=== PATIENT | female | born 1955 | race Caucasian/White ===

== ENCOUNTER 2023-08-26 10:11 | Outpatient (CLI) | payer MEDICARE, OTHER, SELFPAY | END 2023-08-26 10:12 | disposition home or self-care (01) | LOC: ANHAUDASC 10:14 | PROVIDERS: PCP Family Medicine; Visit Provider Otolaryngology | DX: H90.3 Sensorineural hearing loss, bilateral (principal) | CPT/HCPCS: 92557; 92567 ==

== ENCOUNTER 2024-07-22 08:01 | Outpatient (CLI) | payer MEDICARE, OTHER, SELFPAY ==
--- OUTSIDE RECORDS SUMMARY | 2024-07-22 08:05 | XMS_ITS ---
Author Organization [facility] Address [address] [place] [address] Care Team Providers Care Core Driller Helper Name Role Phone Dami Juárez MD Primary Care Provider [phone] Luz Elena Barnes RN Unavailable [phone] Hollie Cespedes MD Unavailable [phone] Transplant Episode Lung Recipient [facility] ([place], [place]) [facility] Organs Received: Right Lung, Left Lung Transplanted on 07/19/2020 Marked as Active Follow-up on 07/19/2020 Lung CoordinatorLuz Elena Barnes RN Fax: N/A Email: N/A [place] Organ Diagnosis Organ Primary Contributory Lung Pulmonary Fibrosis O ther, Specify Cause - Usual Interstitial Pneumonia (UIP) Rejection History Noted Survival Rejection Treatment Biopsy Resolved 08/02/2020 14 days Rejection of lung transplant (HCC) Donor Information Organ ABO Source Meets Risk Criteria HLA Match Mismatches Cross Match Right Lung Transplanted O No A: B: DR: Left Lung Transplanted O No A: B: DR: Right Lung Donor Serology Results Anti-CMV CMV IgG: Positive Anti-HBcAb HBC Total: Negative HBsAg HBsAg: Negative HBV DNA No results on file Anti-HCV HCV: Negative Anti-HIV I/II No results on file Anti-HTLV I/II HTLV: Not Done RPR/VDRL RPR: Negative HBsAb HBsAb: Not Done SARS CoV-2 No results on file Left Lung Donor Serology Results Anti-CMV CMV IgG: Positive Anti-HBcAb HBC Total: Negative HBsAg HBsAg: Negative HBV DNA No results on file Anti-HCV HCV: Negative Anti-HIV I/II No results on file Anti-HTLV I/II HTLV: Not Done RPR/VDRL RPR: Negative HBsAb HBsAb: Not Done SARS CoV-2 No results on file Care Team Name Role Phone Fax Email Luz Elena Barnes, RN Lung Coordinator [phone] N/A N/A [facility] Analyst [phone] N/A N/A Kane Mayorga MD PhD Surgeon [phone] N/A Luz Elena Barnes RN Post Coordinator [phone] N/A N/A Madhavi Cruz RD Dietitian N/A N/A N/A Gallo Farmer, [facility] Pharmacist N/A N/A N/A Hollie Cespedes MD Coal Shooter [phone] N/A Argentina Carney MD Referring Physician [phone] N/A ASHTYN RehmanW Supervisor [place] N/A N/A N/A Jessica Hernandez, KORINA Pre Coordinator N/A N/A N/A Juaquin Perez MD Surgeon [phone] N/A Events Post-Transplant Pre-Transplant Admitted: 07/18/2020 Referred: 04/10/2020 Transplanted: 07/19/2020 Evaluation began: Discharged: 08/01/2020 Committee: 05/31/2020 Center waitlisted:
--- OUTSIDE RECORDS SUMMARY | 2024-07-22 08:05 | XMS_ITS | Referral Summary ---
Author Organization [facility] Address [address] [place] [address] Care Team Providers Care Green Marketer Name Role Phone Dami Juárez MD Primary Care Provider Luz Elena Barnes RN Unavailable [phone] Hollie Cespedes MD Unavailable [phone] Encounters Date Type Department Care Team Description 07/20/2024 Orders Only [facility] Transplant Lung [address] [place] [address] [phone] [place] [address] Luz Elena Barnes, RN 07/05/2024 Orders Only [facility] Transplant Lung [address] [phone] [place] [address] Luz Elena Barnes, RN Encounter for aftercare following lung transplant (HCC) (Primary Dx); Long-term use of immunosuppressant medication; Encounter for therapeutic drug level monitoring; Aftercare following organ transplant 06/15/2024 Orders Only [facility] Transplant Lung [address] [phone] [place] [address] Luz Elena Barnes, RN 04/28/2024 9:31 AM COMMERCIAL REVIEW APPRAISER - 04/28/2024 11:59 PM [facility] Hospital Encounter [facility] ([facility]) [address] [place] [address] Encounter for aftercare following lung transplant (HCC) Discharge Disposition: Discharge to home or self care 04/28/2024 9:35 AM COMMERCIAL REVIEW APPRAISER Lab [facility] ([facility]) [address] [place] [address] Encounter for aftercare following lung transplant (HCC) 04/28/2024 11:00 AM COMMERCIAL REVIEW APPRAISER Office Visit [facility] Pulmonary [address] [facility] 8th [place] [address] Bo Xie MD Encounter for aftercare following lung transplant (HCC) (Primary Dx); Encounter for monitoring tacrolimus therapy; Stage 4 chronic kidney disease (HCC) 04/28/2024 9:56 AM COMMERCIAL REVIEW APPRAISER - 04/28/2024 11:59 PM COMMERCIAL REVIEW APPRAISER Hospital Encounter [facility] Pulmonary [address] [facility] [address] [place] [address] Encounter for aftercare following lung transplant (HCC) Discharge Disposition: Discharge to home or self care 04/25/2024 Orders Only [facility] Transplant Lung [address] [phone] [place] [address] Luz Elena Barnes RN from Last 3 Months Allergies No known active allergies Medications levothyroxine (SYNTHROID) 75 mcg tablet Take 75 mcg by mouth building cleaner before breakfast Active aspirin 81 mg enteric coated tablet Take 81 mg by mouth daily Active acetaminophen (TYLENOL) 325 mg tablet Take 1-2 tablets (325-650 mg total) by mouth every 6 (six) hours as needed for pain 1 Active calcium carbonate (OS-MARY ANNE) 1,250 MG (500 mg of elemental calcium) tablet Take 1 tablet (1,250 mg total) by mouth daily 1 Active cholecalcifero l (VITAMIN D-3) 2000 unit capsule Take 1 capsule (2,000 Units total) by mouth daily 1 Active fluticasone propionate (FLONASE) 50 mcg/actuation nasal spray Administer 1 spray into each nostril 2 (two) times a day as needed for rhinitis or allergies 1 Inhaler 1 Active loratadine (CLARITIN) 10 mg tablet Take 1 tablet (10 mg total) by mouth daily as needed for allergies 1 Active rosuvastatin (CRESTOR) 10 mg tablet TAKE 1 TABLET BY MOUTH DAILY 90 tablet [address] (PROTONIX) 40 mg EC tablet TAKE 1 TABLET BY MOUTH DAILY 90 tablet 3 3 Active denosumab (PROLIA) 60 mg/mL syringe Inject under the skin once Managed by PCP. Active tacrolimus 1 mg immediate-rele ase capsuleIndicat ions:immunosup pression Take 4 capsules (4 mg total) by mouth every morning AND 3 capsules (3 mg total) nightly. 210 capsule 11 5 Active acyclovir (ZOVIRAX) 200 mg capsule Take 1 capsule (200 mg total) by mouth 2 (two) times a day 60 capsule 11 5 Active sulfamethoxazo le-trimethopri m (BACTRIM DS) 800-160 mg per tablet Take 1 tablet (160 mg of trimethoprim total) by mouth 3 (three) times a week 13 tablet 11 5 Active predniSONE (DELTASONE) 5 mg tablet Take 1.5 tablets (7.5 mg) by mouth daily 45 tablet 11 5 025 Active mycophenolate mofetil (CELLCEPT) 500 mg tablet Take 1 tablet (500 mg total) by mouth 2 (two) times a day 60 tablet 11 5 Active mycophenolate mofetil (CELLCEPT) 500 mg tablet TAKE ONE TABLET BY MOUTH TWICE A DAY 60 tablet 11 4 025 Discontin ued(Reord er) predniSONE (DELTASONE) 5 mg tablet TAKE ONE AND ONE HALF TABLET BY MOUTH ONCE DAILY 45 tablet 4 025 Discontin ued(Reord er) Active Problems Problem Noted Date Diagnosed Date Rejection of lung transplant 08/02/2020 Anemia 07/31/2020 Assessment & Plan (08/01/2020 7:56 AM CDT): R/T post op transplant. Stable - No S/S of bleeding noted Chronic respiratory failure 07/31/2020 Assessment & Plan (07/31/2020 8:46 AM CDT): S/P Bilateral lung transplant - On RA Acute pain 07/23/2020 Assessment & Plan (08/01/2020 7:56 AM CDT): Consistent with post-op anterior clamshell incisions. Pain is improving - encouraged to use oral pain medication - Scheduled Tylenol - PRN oxy Bilateral lung transplantation 07/19/20. 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 Pulm managing antibiotics and immunosuppression - pulmonary rehab- walking 30 minutes on treadmill - Aggressive pulmonary rehab. Acapella and IS - regular diet/bowel regimen Assessment & Plan (07/21/2020 11:48 AM CDT): - Now s/p bilateral lung transplant 07/19 - Appreciate pulm transplant recommendations - [address] to -20 suction, CTM output - On Linezolid/Meropenem - PT ordered - Continue CLD - Continue dobutamine gtt for hypotension post-op Moderate persistent asthma without complication 02/25/2020 Constipation 01/09/2020 COVID-19 virus infection 01/09/2020 Hypothyroid 01/06/2020 S/P thoracotomy 12/06/2019 Encounter for aftercare following lung transplan t ([facility]) Immunizations Immunization Administration Dates Next Due Influenza, Quadrivalent, Split, Intramuscular Moderna SARS-CoV-2 Monovalent Vaccination (12+ Y RS) 05/08/2021,11/22/2020 Pfizer SARS-CoV-2 Monovalent Vaccination (12+ Yrs) PURPLE 01/26/2023 Pneumococcal Conjugate Pcv20 01/28/2024 Pneumococcal Polysaccharide PPV23 04/28/2024 RSV Vaccine, Pref, Recombina nt, Subunit, Adjuvanted, PF, IM (Arexvy) 01/26/2023 Social History Tobacco Use Types Packs/Day Years Used Date Smoking Tobacco: Never Smokeless Tobacco: Never AUDIT-C Answer Date Recorded Q1: How often do you have a drink containing alc ohol? Never 07/18/2021 Average Number of Drinks Not on file 022 Frequency of Binge Drinking Not on file 07/2021 PHQ-2 Answer Date Recorded PHQ-2 Total Score (If total score is 3 or more points, staff should administer the PHQ-9) 0 10/15/2020 Personal Safety Answer Date Recorded Have you ever been in or are you currently in a harmful physical or emotional relationship or is someone making you feel afraid or unsafe? Denies 10/09/2022 Comments No Sex and Gender Information Value Date Recorded Sex Assigned at Not on file Legal Sex Female 1:04 PM COMMERCIAL REVIEW APPRAISER Gender Identity Not on file Sexual Orientation Not on file Last Filed Vital Signs Vital Sign Reading Time Taken Comments Blood Pressure 153/83 04/28/2024 10:12 AM COMMERCIAL REVIEW APPRAISER Pulse 78 04/28/2024 10:12 AM COMMERCIAL REVIEW APPRAISER Temperature 36.3 C (97.3 F) 04/28/2024 10:12 AM COMMERCIAL REVIEW APPRAISER Respiratory Rate 18 04/28/2024 10:12 AM COMMERCIAL REVIEW APPRAISER Oxygen Saturation 100% 04/28/2024 10:12 AM COMMERCIAL REVIEW APPRAISER Inhaled Oxygen Concentration - - Weight 93.4 kg (206 lb) 04/28/2024 10:12 AM COMMERCIAL REVIEW APPRAISER Height 158.8 cm (5' 2.5 ) 04/28/2024 10:12 AM CS T Body Mass Index 37.08 04/28/2024 10:12 AM COMMERCIAL REVIEW APPRAISER Plan of Treatment Not on file Medical Devices Implanted Type Area Connie Scratcher Device Identifier Shelf Expiration Date Model / Serial / Lot [employer] [id number] Angio-Seal Evolution 8fr .038in Guidewire Bypass Tube Suture - [id number] - [id number] Implanted:Qty: 1 on 05/23/2020 by Reji Lao MD at [facility] [employer] 01/13/2021 [id number] / [id number] / [id number] [employer] [id number] Angio-Seal Evolution 6fr .035in Guidewire Bypass Tube Suture - [id number] - [id number] Implanted:Qty: 1 on 05/23/2020 by Reji Lao MD at [facility] revoPT Emily 02/12/2021 [id number] / [id number] / [id number] Procedures Procedure Name Priority Date/Time Associated Diagnosis Comments PULMONARY FUNCTION TEST (PFT) Routine 04/28/2024 10:04 AM COMMERCIAL REVIEW APPRAISER Encounter for aftercare following lung transplant (HCC) XR CHEST PA LATERAL 2 VIEWS Schedule Routine, Read Routine (OP Routine) 04/28/2024 9:42 AM COMMERCIAL REVIEW APPRAISER Encounter for aftercare following lung transplant (HCC) EGFR Routine 04/28/2024 9:28 AM COMMERCIAL REVIEW APPRAISER Encounter for aftercare following lung transplant (HCC) DIFFERENTIAL AUTO Routine 04/28/2024 9:2 8 AM COMMERCIAL REVIEW APPRAISER Encounter for aftercare following lung transplant (HCC) CBC WITH AUTO DIFFERENTIAL Routine 04/28/2024 9:28 AM COMMERCIAL REVIEW APPRAISER Encounter for aftercare following lung transplant (HCC) COMPREHENSIVE METABOLIC PANEL Routine 04/28/2024 9:28 AM COMMERCIAL REVIEW APPRAISER Encounter for aftercare following lung transplant (HCC) TACROLIMUS LEVEL, TROUGH Routine 04/28/2024 9:28 AM COMMERCIAL REVIEW APPRAISER Encounter for aftercare following lung transplant (HCC) HEPATITIS C RNA, QUANTITATIVE, PCR Routine 07/22/2021 from Last 3 Months or Most Recently Relevant to Health Maintenance Results * Pulmonary Function Test - (04/28/2024 10:04 AM COMMERCIAL REVIEW APPRAISER) FVC PRE 2.[address] [facility] FVC %PRE PRED 82 % [facility] FEV1 PRE 1.83 L [facility] FEV1 %PRE PRED 88 % [facility] FEV1/FVC PRE 84.4 % [facility] Anatomical Region Laterality Modality PFT 04/28/2024 9:59 AM COMMERCIAL REVIEW APPRAISER Narrative 04/28/2024 11:04 AM COMMERCIAL REVIEW APPRAISER PFT performed at:->[facility] Adult PFT Lab- [id number] Procedure:->Spirometry Procedure:->Pulse Ox Pulmonary Function Test Interpretation SPIROMETRY: The FEV1 and FVC are normal. The inspiratory loop is normal. PULSE OXIMETRY: Oxygen saturation as measured by pulse oximetry is normal. Impression: There is no significant ventilatory defect. Compared with most recent study, there has been no significant interval change. The attending pulmonary physician certifies a physician presence in the [facility] Suite during the administration of aerosolized bronchodilator. The attending pulmonary physician certifies that he/she has reviewed and interpreted the graphic and numerical data of this pulmonary function study and agrees with the written final report. The lower limit of normal for PaO2 and %HbO2 is age dependent. However, the [facility] Pulmonary Function Laboratory defines hypoxemia as a PaO2 <56 mm Hg or a %HbO2 <89%. Starting on March of 2024 the [facility] Pulmonary Function Laboratory utilizes race neutral GLI Global normative equations. us Abdullahi Baird MD PhD PFT ORDERABLES Final Result * XR Chest Pa Lateral 2 Views (04/28/2024 9:42 AM COMMERCIAL REVIEW APPRAISER) Anatomical Region Laterality Modality Body, Chest N/A Computed Radiogr aphy 04/28/2024 10:3 2 AM COMMERCIAL REVIEW APPRAISER Impressions 04/28/2024 10:32 AM COMMERCIAL REVIEW APPRAISER The current study is compared with the prior radiograph dated 01/28/2024 Transverse sternotomy wires and changes of bilateral lung transplantation are again noted. No new consolidation or pulmonary edema. No pleural effusion or pneumothorax. Minimal blunting of the costophrenic angles is unchanged and likely represents mild scarring. Electronically signed by: Von Garcia M.D. Narrative 04/28/2024 10:32 AM COMMERCIAL REVIEW APPRAISER EXAMINATION: 2 view chest radiograph Procedure Note Von Garcia MD - 04/28/2024 EXAMINATION: 2 view chest radiograph IMPRESSION: The current study is compared with the prior radiograph dated 01/28/2024 Transverse sternotomy wires and changes of bilateral lung transplantation are again noted. No new consolidation or pulmonary edema. No pleural effusion or pneumothorax. Minimal blunting of the costophrenic angles is unchanged and likely represents mild scarring. Electronically signed by: Von Garcia M.D. Abdullahi Biard MD PhD IMG XR PROCEDURES Seble l Result * (ABNORMAL) eGFR (04/28/2024 9:28 AM COMMERCIAL REVIEW APPRAISER) eGFR 38(L) >=60 mL/min/1. 73 m2 Comment: Interpretive Data Reference Interval Normal >/= 90 mL/min/1.73m2 Mildly decreased* 60 - 89 mL/min/1.73m2 Mildly to moderately decreased 45 - 59 mL/min/1.73m2 Moderately to severely decreased 30 - 44 mL/min/1.73m2 Severely decreased 15 - 29 mL/min/1.73m2 Kidney Failure < 15 mL/min/1.73m2 *Relative to young adult level Estimated glomerular filtration rate is determined by the 2020 CKD-EPI equation recommended by the National Kidney Foundation (A Unifying Approach to GFR Estimation: Recommendations of the NKF-ASK Task Force on Reassessing the Inclusion of Race in Diagnosing Kidney Disease, JASN 2020). The CKD-EPI equation should not be used for patients with unstable renal function and has not been validated in children and those over 70. Current interpretive data was last reviewed 2021. Blood 04/28/2024 9:28 AM COMMERCIAL REVIEW APPRAISER 04/28/2024 10:04 AM COMMERCIAL REVIEW APPRAISER Abdullahi Baird MD PhD LAB BLOOD ORDERABLES F inal Result [facility] [place] [address] * Differential, auto (04/28/2024 9:28 AM COMMERCIAL REVIEW APPRAISER) Neutrophil abs 2.6 1.5 - 6.5 K/cumm Imm gran abs 0.0 0.0 - 0.1 K/cumm [facility] Lymphocyte abs 1.7 0.8 - 3.3 K/cumm [facility] Monocyte abs 0.6 0.2 - 0.8 K/cumm [facility] Eosinophil abs 0.1 0.0 - 0.5 K/cumm [facility] Basophil abs 0.0 0.0 - 0.1 K/cumm [facility] Neutrophil pct 51.6 % [facility] Comment: Interpretive Data Percent cell count reference ranges are not reported, since discordance with absolute values may lead to misinterpretation of CBC data. Current Interpretive Data was last revised on 2017. Imm gran pct 0.6 % [facility] Comment: Interpretive Data Percent cell count reference ranges are not reported, since discordance with absolute values may lead to misinterpretation of CBC data. Current Interpretive Data was last revised on 2017. Lymphocyte pct 33.9 % [facility] Comment: Interpretive Data Percent cell count reference ranges are not reported, since discordance with absolute values may lead to misinterpretation of CBC data. Current Interpretive Data was last revised on 2017. Monocyte pct 12.1 % [facility] Comment: Interpretive Data Percent cell count reference ranges are not reported, since discordance with absolute values may lead to misinterpretation of CBC data. Current Interpretive Data was last revised on 2017. Eosinophil pct 1.4 % [facility] Comment: Interpretive Data Percent cell count reference ranges are not reported, since discordance with absolute values may lead to misinterpretation of CBC data. Current Interpretive Data was last revised on 2017. Basophil pct 0.4 % [facility] Comment: Interpretive Data Percent cell count reference ranges are not reported, since discordance with absolute values may lead to misinterpretation of CBC data. Current Interpretive Data was last revised on 2017. Blood 04/28/2024 9:28 AM COMMERCIAL REVIEW APPRAISER 04/28/2024 9:59 AM COMMERCIAL REVIEW APPRAISER us Abdullahi Baird MD PhD LAB BLOOD ORDERABLES F inal Result [facility] Department [place] [address] * Tacrolimus level trough (04/28/2024 9:28 AM COMMERCIAL REVIEW APPRAISER) Pathologist [facility] Tacrolimus trough 5.3 ng/mL Comment: Interpretive Data Testing performed by liquid chromatography-tandem mass spectrometry. Therapeutic concentrations vary depending on type of transplanted organ and time elapsed since transplant. Typical trough concentrations range from 5-15 ng/mL. This test was developed and its performance characteristics determined by the [facility] consistent with CLIA requirements. This test has not been cleared or approved by the [place] Food and Drug administration. Current interpretive data last reviewed 2019. Blood 04/28/2024 9:28 AM COMMERCIAL REVIEW APPRAISER 04/28/2024 9:59 AM COMMERCIAL REVIEW APPRAISER us Abdullahi Baird MD PhD LAB BLOOD ORDERABLES F inal Result [facility] [place] [address] * (ABNORMAL) CBC with auto differential (04/28/2024 9:28 AM COMMERCIAL REVIEW APPRAISER) [facility] WBC 5.0 3.8 - 9.9 K/cumm Hgb 11.9 11.9 - 15.5 g/dL [facility] Hct 36.3 35.6 - 45.5 % [facility] Plt 160 150 - 400 K/cumm [facility] MPV 11.4 9.1 - 12.3 fL [facility] RBC 3.68(L) 3.90 - 5.20 M/cumm [facility] MCV 98.6(H) 81.3 - 96.4 fL [facility] MCH 32.3 27.1 - 33.3 pg [facility] MCHC 32.8 32.3 - 35.7 g/dL [facility] RDW CV 13.1 11.1 - 14.9 % [facility] RDW SD 46.6 35.7 - 48.1 fL [facility] NRBC abs 0.00 0.00 - 0.01 K/cumm [facility] Blood 04/28/2024 9:28 AM COMMERCIAL REVIEW APPRAISER 04/28/2024 9:59 AM COMMERCIAL REVIEW APPRAISER us Abdullahi Baird MD PhD LAB BLOOD ORDERABLES F inal Result [facility] [place] [address] * (ABNORMAL) Comprehensive metabolic panel (04/28/2024 9:28 AM COMMERCIAL REVIEW APPRAISER) Sodium 140 135 - 145 mmol/L Potassium, pl 4.0 3.3 - 4.9 mmol/L [facility] Chloride 105 97 - 110 mmol/L [facility] CO2 25 22 - 32 mmol/L [facility] Anion gap 10 2 - 15 mmol/L [facility] BUN 29(H) 6 - 25 mg/dL [facility] Creatinine 1.50(H) 0.60 - 1.10 mg/dL [facility] Glucose 88 70 - 199 mg/dL [facility] Comment: Interpretive Data Fasting glucose >/= 126 mg/dl is diagnostic for diabetes. Fasting is defined as no caloric intake for at least 8 hours. Fasting glucose between 100 mg/dl to 125 mg/dl is diagnostic of prediabetes. In a patient with classic symptoms of hyperglycemia or hyperglycemic crisis, a random glucose >/= 200 mg/dl is diagnostic for diabetes. In the absence of unequivocal hyperglycemia, results should be confirmed by repeat testing. The classification and Diagnosis of Diabetes Diabetes Care 2021; 46: S19-S40. Current interpretive data was last revised 2022. Calcium 9.4 8.5 - 10.3 mg/dL [facility] Bilirubin, total 0.3 0.1 - 1.2 mg/dL [facility] Protein, pl 6.9 6.5 - 8.5 g/dL [facility] Albumin 4.2 3.5 - 5.0 g/dL [facility] Alk phos 58 40 - 130 Units/L [facility] ALT 13 7 - 45 Units/L [facility] AST 31 10 - 45 Units/L [facility] Blood 04/28/2024 9:28 AM COMMERCIAL REVIEW APPRAISER 04/28/2024 9:59 AM COMMERCIAL REVIEW APPRAISER us Abdullahi Baird MD PhD LAB BLOOD ORDERABLES F inal Result [facility] [place] [address] * Hepatitis C (HCV) RNA PCR, quantitative (07/22/2021) SCRIBED HCV RNA <15 15 - 100,000,000 IUnit/mL EXTERNAL LAB HCV RNA log IU/mL <1.18 1.18 - 8.00 EXTERNAL LAB Blood specimen (specimen) 07/22/2021 us Historical Provider LAB MICROBIOLOGY - GENERA L ORDERABLES Edited Result - Final EXTERNAL LAB from Last 3 Months or Most Recently Relevant to Health Maintenance Insurance MEDICARE MEDICARE LIVE [address] [facility] MEDICARE [facility] MEDICARE [facility] TRANSPLANT [facility] Advance Directives For more information, please contact: [phone] * Full Code (Latest Code Status on File) Date Activated Date Inactivated Comments 08/27/2020 7:37 AM 08/27/2020 1:55 PM * Full Code Date Activated Date Inactivated Comments 07/20/2020 11:11 AM 08/01/2020 7:54 PM * Full Code Date Activated Date Inactivated Comments 07/18/2020 6:33 PM 07/20/2020 11:11 AM * Full Code Date Activated Date Inactivated Comments 05/23/2020 3:35 PM 05/23/2020 9:41 PM Care Teams Green Marketer Relationship Specialty Start Date End Date Dami Juárez MD PCP - General 04/27/20 Luz Elena Barnes, RN [address] [facility] [address] [place] [address] Coconut Cooker 08/02/20 Hollie Cespedes MD [address] [place] [address] Shellfish Processing Laborer Transplant 06/03/23
--- OUTSIDE RECORDS SUMMARY | 2024-07-22 08:05 | XMS_ITS | Encounter Summary ---
Author Organization [facility] Address [facility] [place] [address] Care Team Providers Care Animal Control Supervisor Name Role Phone Dami Juárez MD Primary Care Provider [phone] Encounter Details Date Type Department Care Team (Late st Contact Info) Description 05/12/2023 [place] [address] Fahad Ruiz MD [address] [place] [address] Visit Follow Up Social History Tobacco Use Types Packs/Day Years Used Date Smoking Tobacco: Never Smokeless Tobacco: Never Alcohol Use Standard Drinks/Week Comments Not Currently 0 (1 standard drink = 0.6 oz pur e alcohol) PHQ-2 Answer Date Recorded PHQ-2 Score - If the patient scores above 3, please move on to questions 3-9 0 03/28/2020 Comments No Sex and Gender Information Value Date Recorded Sex Assigned at Female 04/12/2024 9:35 AM GYRO COMPASS TESTER Legal Sex Female 6:46 PM CDT Gender Identity Not on file Sexual Orientation Not on file documented as of this encounter Functional Status * RETIRED Are you deaf or do you have serious difficulty hearing Answer Date of Assessment Author Status No 01/06/2020 4:09 PM CDT Activ e * RETIRED Are you blind or do you have serious difficulty seeing, even when wearing glasses? Answer Date of Assessment Author Status No 01/06/2020 4:09 PM CDT Activ e * Do you have serious difficulty walking or climbing stairs? Answer Date of Assessment Author Status No 01/06/2020 4:09 PM Heydi Miller RN Active * Do you have difficulty dressing or bathing? Answer Date of Assessment Author Status No 01/06/2020 4:09 PM Heydi Miller RN Active * Because of a physical, mental, or emotional condition, do you have difficulty doing errands alone such as visiting a doctor's office or shopping? Answer Date of Assessment Author Status No 01/06/2020 4:09 PM Heydi Miller RN Active documented as of this encounter Mental Status * Because of a physical, mental, or emotional condition, do you have serious difficulty concentrating, remembering, or making decisions? Answer Entry Date Author Status No 01/06/2020 4:09 PM Heydi Miller RN Active documented in this encounter Plan of Treatment Not on file documented as of this encounter Visit Diagnoses Not on filedocumented in this encounter Care Teams Animal Control Supervisor Relationship Specialty Start Date End Date Dami Juárez MD [address] [place] [phone] PCP - General FAMILY PRACTICE 03/27/20 documented as of this encounter
--- OUTSIDE RECORDS SUMMARY | 2024-07-22 08:05 | XMS_ITS | Encounter Summary ---
Author Organization [facility] Address [facility] [place] [address] Care Team Providers Care Vest Presser Name Role Phone Dami Juárez MD Primary Care Provider [phone] Encounter Details Date Type Department Care Team (Late st Contact Info) Description 04/02/2020 MyChart Message Enc [facility] [address] [place] [address] Argentina Carney MD [address] [place] [address] RE: Medication Questions Social History Tobacco Use Types Packs/Day Years [...] Sex Assigned at Female 04/12/2024 9:35 AM PANEL MONITOR Legal Sex Female 6:46 PM CDT Gender Identity Not on file Sexual Orientation Not on file COVID-19 Exposure Response Date Recorded In the last month, have you been in contact with someone who was confirmed or suspected to have Coronavirus / COVID-19? No / Unsure 03/28/2020 8:33 AM PANEL MONITOR documented as of this encounter Functional Status [...] Author Status No 01/06/2020 4:09 PM CDT Heydi Pal RN Active * Do you have difficulty dressing or bathing? Answer Date of Assessment Author Status No 01/06/2020 4:09 PM CDT Heydi Pal RN Active * Because of a physical, mental, or emotional condition, do you have difficulty doing errands alone such as visiting a doctor's office or shopping? Answer Date of Assessment Author Status No 01/06/2020 4:09 PM CDT Heydi Pal RN Active documented as of this encounter Mental Status * Because of a physical, mental, or emotional condition, do you have serious difficulty concentrating, remembering, or making decisions? Answer Entry Date Author Status No 01/06/2020 4:09 PM CDT Heydi Pal RN Active documented in this encounter Progress Notes * Janet Burrows MA - 04/02/2020 9:19 AM CST See below L MONITOR documented in this encounter Plan of Treatment Not on file documented as of this encounter Visit Diagnoses Not on filedocumented in this encounter Additional Health Concerns Infection Onset Date Last Indicated Resolved Time COVID-19 Rule Out 04/26/2020 04/26/2020 04/28/2020 9:12 AM PANEL MONITOR COVID-19 Rule Out 12/03/2020 12/03/2020 12/04/2020 1:54 PM CDT COVID-19 Rule Out 11/28/2022 11/28/2022 11/28/2022 2:24 PM CDT documented as of this encounter Care Teams Vest Presser Relationship Specialty Start Date End Date Dami Juárez MD [address] [place] [phone] PCP - General FAMILY PRACTICE 03/27/20 documented as of this encounter
--- OUTSIDE RECORDS SUMMARY | 2024-07-22 08:05 | XMS_ITS | Encounter Summary ---
Author Organization [facility] Address [facility] [place] [address] Care Team Providers Care Flat Folding Machine Operator Name Role Phone Dami Juárez MD Primary Care Provider [phone] Encounter Details Date Type Department Care Team (Late st Contact Info) Description 10/10/2022 [place] [address] Fahad Ruiz MD [address] [place] [address] Visit Follow Up Social History Tobacco Use [...] Sex Assigned at Female 04/12/2024 9:35 AM STOCK CONTROL CLERK Legal Sex Female 6:46 PM CDT Gender [...] Pal RN Active documented in this encounter Plan of Treatment Not on file documented as of this encounter Visit Diagnoses Not on filedocumented in this encounter Additional Health Concerns Infection Onset Date Last Indicated Resolved Time COVID-19 Rule Out 11/28/2022 11/28/2022 11/28/2022 2:24 PM CDT documented as of this encounter Care Teams Flat Folding Machine Operator Relationship Specialty Start Date End Date Dami Juárez MD [address] [place] [phone] PCP - General FAMILY PRACTICE 03/27/20 documented as of this encounter
--- OUTSIDE RECORDS SUMMARY | 2024-07-22 08:05 | XMS_ITS | Encounter Summary ---
Author Organization [facility] Address [facility] [place] [address] Care Team Providers Care Electrician Elevator Maintenance Name Role Phone Dami Juárez MD Primary Care Provider [phone] Encounter Details Date Type Department Care Team (Late st Contact Info) Description 05/10/2020 Paystikhart Message Enc [facility] [address] [place] [address] Argentina Carney MD [address] [place] [address] RE: FW: Other Social History Tobacco Use Types Packs/Day Years [...] Sex Assigned at Female 04/12/2024 9:35 AM COTTON PULLER Legal Sex Female 6:46 PM CDT Gender Identity Not on file Sexual Orientation Not on file COVID-19 Exposure Response Date Recorded In the last month, have you been in contact with someone who was confirmed or suspected to have Coronavirus / COVID-19? No / Unsure 05/02/2020 11:23 AM COTTON PULLER documented as of this encounter Functional Status [...] documented in this encounter Progress Notes * Argentina Carney MD - 05/29/2020 8:55 AM CDT See other task. This has been done. * Janet Burrows MA - 05/11/2020 3:37 PM CST FMLA forms in task folder ON PULLER documented in this encounter Plan of Treatment Not on file documented as of this encounter Visit Diagnoses Not on filedocumented in this encounter Additional Health Concerns Infection Onset Date Last Indicated Resolved Time COVID-19 Rule Out 12/03/2020 12/03/2020 12/04/2020 1:54 PM CDT COVID-19 Rule Out 11/28/2022 11/28/2022 11/28/2022 2:24 PM CDT documented as of this encounter Care Teams Electrician Elevator Maintenance Relationship Specialty Start Date End Date Dami Juárez MD [address] [place] [phone] PCP - General FAMILY PRACTICE 03/27/20 documented as of this encounter
--- OUTSIDE RECORDS SUMMARY | 2024-07-22 08:05 | XMS_ITS | Encounter Summary ---
Author Organization [facility] Address [facility] [place] [address] Care Team Providers Care Life Skills Trainer Name Role Phone Dami Juárez MD Primary Care Provider [phone] Encounter Details Date Type Department Care Team (Late st Contact Info) Description 04/03/2020 MyChart Message Enc [facility] [address] [address] Argentina Carney MD [address] [place] [address] RE: Medication Questions Social History [...] Sex Assigned at Female 04/12/2024 9:35 AM CLINICAL GENETICS LABORATORY CHIEF Legal Sex Female 6:46 PM CDT Gender Identity Not on file Sexual Orientation Not on file COVID-19 Exposure Response Date Recorded In the last month, have you been in contact with someone who was confirmed or suspected to have Coronavirus / COVID-19? No / Unsure 04/06/2020 7:18 PM CLINICAL GENETICS LABORATORY CHIEF documented as of this encounter Functional Status [...] Progress Notes * Janet Burrows MA - 04/03/2020 10:58 AM CST Please advise ICAL GENETICS LABORATORY CHIEF documented in this encounter Plan of Treatment Not on file documented as of this encounter Visit Diagnoses Not on filedocumented in this encounter Additional Health Concerns Infection Onset Date Last Indicated Resolved Time COVID-19 Rule Out 04/26/2020 04/26/2020 04/28/2020 9:12 AM CLINICAL GENETICS LABORATORY CHIEF COVID-19 Rule Out 12/03/2020 12/03/2020 12/04/2020 1:54 PM CDT COVID-19 Rule Out 11/28/2022 11/28/2022 11/28/2022 2:24 PM CDT documented as of this encounter Care Teams Life Skills Trainer Relationship Specialty Start Date End Date Dami Juárez MD [address] [place] [phone] PCP - General FAMILY PRACTICE 03/27/20 documented as of this encounter
--- OUTSIDE RECORDS SUMMARY | 2024-07-22 08:05 | XMS_ITS | Encounter Summary ---
Author Organization [facility] Address [address] [place] [address] Care Team Providers Care Speech Coach Name Role Phone Antonio Carlos MD Primary Care Provider [phone] Dami Juárez MD Primary Care Provider [phone] Encounter Details Date Type Department Care Team (Late st Contact Info) Description 03/05/2020 MyChart Message Enc [facility] [address] [place] [address] Argentina Carney MD [address] [place] [address] Question Social History Tobacco Use Types Packs/Day Years Used Date Smoking Tobacco: Never Smokeless Tobacco: Never Alcohol Use Standard Drinks/Week Comments Not Currently 0 (1 standard drink = 0.6 oz pur e alcohol) Comments No Sex and Gender Information Value Date Recorded Sex Assigned at Female 04/12/2024 9:35 AM WELFARE ELIGIBILITY INTERVIEWER Legal Sex Female 6:46 PM CDT Gender Identity Not on file Sexual Orientation Not on file COVID-19 Exposure Response Date Recorded In the last month, have you been in contact with someone who was confirmed or suspected to have Coronavirus / COVID-19? No / Unsure 02/22/2020 2:07 PM WELFARE ELIGIBILITY INTERVIEWER documented as of this encounter Functional Status [...] Author Status No 01/06/2020 4:09 PM CDT Keith Pal RN Active * Do you have [...] Date Author Status No 01/06/2020 4:09 PM DEONDRET Heydi Pal RN Active documented in this encounter Plan of Treatment Not on file documented as of this encounter Visit Diagnoses Not on filedocumented in this encounter Additional Health Concerns Infection Onset Date Last Indicated Resolved Time COVID-19 Confirmed 01/06/2020 01/06/2020 0 12:35 AM WELFARE ELIGIBILITY INTERVIEWER COVID-19 Rule Out 04/26/2020 04/26/2020 04/28/2020 9:12 AM WELFARE ELIGIBILITY INTERVIEWER COVID-19 Rule Out 12/03/2020 12/03/2020 12/04/2020 1:54 PM CDT COVID-19 Rule Out 11/28/2022 11/28/2022 11/28/2022 2:24 PM CDT documented as of this encounter Care Teams Speech Coach Relationship Specialty Start Date End Date Antonio Carlos MD [address] [place] [phone] PCP - General FAMILY PRACTICE 05/06/19 03/26/20 Dami Juárez MD [address] [place] [phone] PCP - General FAMILY PRACTICE 03/27/20 documented as of this encounter
--- OUTSIDE RECORDS SUMMARY | 2024-07-22 08:05 | XMS_ITS | Clinical Summary ---
Author Organization [facility] Address [address] [place] [address] Care Team Providers Care Dry Boss Name Role Phone Dami Juárez MD Primary Care Provider Luz Elena Barnes RN Unavailable [phone] Hollie Cespedes MD Unavailable [phone] Allergies No known active allergies Medications levothyroxine (SYNTHROID) 75 mcg tablet Take 75 mcg by mouth tree trimmer helper before breakfast Active aspirin 81 mg enteric [...] TABLET BY MOUTH ONCE DAILY 45 tablet 11 4 025 Discontin ued(Reord er) Active Problems [...] (04/23/2020): Added automatically from request for surgery [id number] Assessment & Plan (08/01/2020 7:56 AM CDT): [...] Encounter for aftercare following lung transplan t ([facility]) Encounters Date Type Department Care Team Description 07/20/2024 Orders Only [facility] Lung [address] [facility] [address] [id number] [place] [address] Luz Elena Barnes, RN 07/05/2024 Orders Only [facility] Transplant Lung [address] [facility] [address] [id number] [place] [address] Luz Elena Barnes, RN Encounter for aftercare following lung transplant (HCC) (Primary Dx); Long-term use of immunosuppressant medication; Encounter for therapeutic drug level monitoring; Aftercare following organ transplant 06/15/2024 Orders Only [facility] Transplant Lung [address] [facility] [address] [phone] [place] [address] Luz Elena Barnes RN 04/28/2024 11:00 AM WINDOWS MIGRATION TECHNICIAN Office Visit [facility] [address] [facility] 8th [place] [address] [place] [address] Bo Xie MD Encounter for aftercare following lung transplant (HCC) (Primary Dx); Encounter for monitoring tacrolimus therapy; Stage 4 chronic kidney disease (HCC) 04/28/2024 9:56 AM WINDOWS MIGRATION TECHNICIAN - 04/28/2024 11:59 PM WINDOWS MIGRATION TECHNICIAN Hospital Encounter [facility] [address] [facility] [address] [place] [address] Encounter for aftercare following lung transplant (HCC) Discharge Disposition: Discharge to home or self care 04/28/2024 9:35 AM WINDOWS MIGRATION TECHNICIAN Lab [facility] [address] [place] [phone] Encounter for aftercare following lung transplant (HCC) 04/28/2024 9:31 AM WINDOWS MIGRATION TECHNICIAN - 04/28/2024 11:59 PM WINDOWS MIGRATION TECHNICIAN Hospital Encounter [facility] [place] [facility] ([facility]) [address] [place] [address] Encounter for aftercare following lung transplant (HCC) Discharge Disposition: Discharge to home or self care 04/25/2024 Orders Only [facility] Transplant Lung [address] [facility] [address] [phone] [place] [address] Luz Elena Barnes, RN from Last 3 Months Immunizations Immunization Administration Dates Next Due Influenza, Quadrivalent, Split, Intramuscular Moderna SARS-CoV-2 Monovalent Vaccination (12+ Y RS) 05/08/2021,11/22/2020 Pfizer SARS-CoV-2 Monovalent Vaccination (12+ Yrs) PURPLE 01/26/2023 Pneumococcal Conjugate Pcv20 01/28/2024 Pneumococcal Polysaccharide PPV23 04/28/2024 RSV Vaccine, Pref, Recombina nt, Subunit, Adjuvanted, PF, IM (Arexvy) 01/26/2023 Surgical History Surgery Date Site/Laterality Comments LUNG BIOPSY IR PICC LINE PLACEMENT > 5 YEARS 08/27/2020 N/A LUNG TRANSPLANT, DOUBLE Medical History Medical History Date Comments Thyroid disease Pulmonary fibrosis (HCC) PONV (postoperative nausea and vomiting) Hypothyroidism Motion sickness GERD (gastroesophageal reflux disease) Family History Medical History Relation Name Comments Lung cancer Father Stroke Mother Relation Name Status Comments Father Mother Social History Tobacco Use Types Packs/Day Years [...] on file Legal Sex Female 1:04 PM WINDOWS MIGRATION TECHNICIAN Gender Identity Not on file Sexual Orientation Not on file Obstetrics History Last Filed Vital Signs Vital Sign Reading Time Taken Comments Blood Pressure 153/83 04/28/2024 10:12 AM WINDOWS MIGRATION TECHNICIAN Pulse 78 04/28/2024 10:12 AM WINDOWS MIGRATION TECHNICIAN Temperature 36.3 C (97.3 F) 04/28/2024 10:12 AM WINDOWS MIGRATION TECHNICIAN Respiratory Rate 18 04/28/2024 10:12 AM WINDOWS MIGRATION TECHNICIAN Oxygen Saturation 100% 04/28/2024 10:12 AM WINDOWS MIGRATION TECHNICIAN Inhaled Oxygen Concentration - - Weight 93.4 kg (206 lb) 04/28/2024 10:12 AM WINDOWS MIGRATION TECHNICIAN Height 158.8 cm (5' 2.5 ) 04/28/2024 10:12 AM CS T Body Mass Index 37.08 04/28/2024 10:12 AM WINDOWS MIGRATION TECHNICIAN Plan of Treatment Health Maintenance Due Date Last Done Comments Colon Cancer Screening-Colonoscopy 1955 DTaP/Tdap/Td Vaccine (1 - Tdap) 11/30/1966 Hepatitis B Screening 11/30/1973 Zoster Vaccine (1 of 2) 11/30/1974 Well Visit 65+ 11/30/2020 Depression Screening 10/15/2021 10/15/2020, 09/19/2020, 08/02/2020 Fall Risk Assessment 07/18/2022 07/18/2021 Covid-19 Vaccine (8 - 2023-2 5 season) 2023 01/26/2023, 01/26/2023, 01/17/2022, Additional history exists Osteoporosis Screening-Bone Density Scan 07/15/2024 07/15/2022, 05/28/2020 Breast Cancer Screening-Mammogram 07/28/2024 07/29/2023, 07/29/2023, 07/15/2022, Additional history exists Hepatitis C Screening Completed 07/22/2021 , 07/17/2021, 01/21/2021, Additional history exists Influenza Vaccine Completed 01/26/2024, , 01/10/2022 Pneumococcal vaccine 65+ Completed 04/28/2024, 01/14 Medical Devices Implanted Type Area Flight Follower Device Identifier Shelf Expiration Date Model / Serial / Lot [employer]ig [employer] [id number] Angio-Seal Evolution 8fr .038in Guidewire Bypass Tube Suture - [id number] - [id number] Implanted:Qty: 1 on 05/23/2020 by Reji Lao MD at [facility] 01/13/2021 [id number] / [id number] / [id number] [employer] [id number] Angio-Seal Evolution 6fr .035in Guidewire Bypass Tube Suture - [id number] - [id number] Implanted:Qty: 1 on 05/23/2020 by Reji Lao MD at [facility] 02/12/2021 [id number] / [id number] / [id number] Procedures Procedure Name Priority Date/Time Associated Diagnosis Comments PULMONARY FUNCTION TEST (PFT) Routine 04/28/2024 10:04 AM WINDOWS MIGRATION TECHNICIAN Encounter for aftercare following lung transplant (HCC) XR CHEST PA LATERAL 2 VIEWS Schedule Routine, Read Routine (OP Routine) 04/28/2024 9:42 AM WINDOWS MIGRATION TECHNICIAN Encounter for aftercare following lung transplant (HCC) EGFR Routine 04/28/2024 9:28 AM WINDOWS MIGRATION TECHNICIAN Encounter for aftercare following lung transplant (HCC) DIFFERENTIAL AUTO Routine 04/28/2024 9:2 8 AM WINDOWS MIGRATION TECHNICIAN Encounter for aftercare following lung transplant (HCC) CBC WITH AUTO DIFFERENTIAL Routine 04/28/2024 9:28 AM WINDOWS MIGRATION TECHNICIAN Encounter for aftercare following lung transplant (HCC) COMPREHENSIVE METABOLIC PANEL Routine 04/28/2024 9:28 AM WINDOWS MIGRATION TECHNICIAN Encounter for aftercare following lung transplant (HCC) TACROLIMUS LEVEL, TROUGH Routine 04/28/2024 9:28 AM WINDOWS MIGRATION TECHNICIAN Encounter for aftercare following lung transplant (HCC) HEPATITIS C RNA, QUANTITATIVE, PCR Routine 07/22/2021 from Last 3 Months or Most Recently Relevant to Health Maintenance Results * Pulmonary Function Test - (04/28/2024 10:04 AM WINDOWS MIGRATION TECHNICIAN) FVC PRE 2.16 L [facility] FVC %PRE PRED 82 % [facility] FEV1 PRE 1.83 L [facility] FEV1 %PRE PRED 88 % [facility] FEV1/FVC PRE 84.4 % [facility] Anatomical Region Laterality Modality PFT 04/28/2024 9:59 AM WINDOWS MIGRATION TECHNICIAN Narrative 04/28/2024 11:04 AM WINDOWS MIGRATION TECHNICIAN PFT performed at:->[facility] Adult PFT Lab- [facility] Procedure:->Spirometry Procedure:->Pulse Ox [...] and %HbO2 is age dependent. However, the [facility] defines hypoxemia as a PaO2 <56 mm Hg or a %HbO2 <89%. Starting on March of 2024 the [facility] utilizes race neutral GLI Global normative equations. Abdullahi Baird MD PhD PFT ORDERABLES Final Result * XR Chest Pa Lateral 2 Views (04/28/2024 9:42 AM WINDOWS MIGRATION TECHNICIAN) Anatomical Region Laterality Modality Body, Chest N/A Computed Radiogr aphy 04/28/2024 10:3 2 AM WINDOWS MIGRATION TECHNICIAN Impressions 04/28/2024 10:32 AM WINDOWS MIGRATION TECHNICIAN The current study is compared with the prior radiograph dated 01/28/2024 Transverse sternotomy wires and changes of bilateral lung transplantation are again noted. No new consolidation or pulmonary edema. No pleural effusion or pneumothorax. Minimal blunting of the costophrenic angles is unchanged and likely represents mild scarring. Electronically signed by: Von Garcia M.D. Narrative 04/28/2024 10:32 AM WINDOWS MIGRATION TECHNICIAN EXAMINATION: 2 view chest radiograph Procedure Note [...] Electronically signed by: Von Garcia M.D. Abdullahi Baird MD PhD IMG XR PROCEDURES Seble l Result * (ABNORMAL) eGFR (04/28/2024 9:28 AM WINDOWS MIGRATION TECHNICIAN) eGFR 38(L) >=60 mL/min/1. 73 m2 Comment: [...] of Race in Diagnosing Kidney Disease, JASN 202). The CKD-EPI equation should not be used for patients with unstable renal function and has not been validated in children and those over 70. Current interpretive data was last reviewed 2021. Blood 04/28/2024 9:28 AM WINDOWS MIGRATION TECHNICIAN 04/28/2024 10:04 AM WINDOWS MIGRATION TECHNICIAN us Abdullahi Baird MD PhD LAB BLOOD ORDERABLES F inal Result [facility] [address] [facility] Department [place] [address] * Differential, auto (04/28/2024 9:28 AM WINDOWS MIGRATION TECHNICIAN) Pathologist [facility] Neutrophil abs 2.6 1.5 - 6.5 K/cumm Imm gran abs 0.0 0.0 - 0.1 K/cumm [facility] Lymphocyte abs 1.7 0.8 - 3.3 K/cumm [facility] Monocyte abs 0.6 0.2 - 0.8 K/cumm [facility] Eosinophil abs 0.1 0.0 - 0.5 K/cumm [facility] Basophil abs 0.0 0.0 - 0.1 K/cumm [facility] Neutrophil pct 51.6 % [facility] Comment: Interpretive Data Percent cell count reference ranges are not reported, since discordance with absolute values may lead to misinterpretation of CBC data. Current Interpretive Data was last revised on 2017. Imm gran pct 0.6 % [facility] Comment: Interpretive Data Percent cell count reference ranges are not reported, since discordance with absolute values may lead to misinterpretation of CBC data. Current Interpretive Data was last revised on 2017. Lymphocyte pct 33.9 % [facility] Comment: Interpretive Data Percent cell count reference ranges are not reported, since discordance with absolute values may lead to misinterpretation of CBC data. Current Interpretive Data was last revised on 2017. Monocyte pct 12.1 % [facility] Comment: Interpretive Data Percent cell count reference ranges are not reported, since discordance with absolute values may lead to misinterpretation of CBC data. Current Interpretive Data was last revised on 2017. Eosinophil pct 1.4 % [facility] Comment: Interpretive Data Percent cell count reference ranges are not reported, since discordance with absolute values may lead to misinterpretation of CBC data. Current Interpretive Data was last revised on 2017. Basophil pct 0.4 % [facility] Comment: Interpretive Data Percent cell count reference ranges are not reported, since discordance with absolute values may lead to misinterpretation of CBC data. Current Interpretive Data was last revised on 2017. Blood 04/28/2024 9:28 AM WINDOWS MIGRATION TECHNICIAN 04/28/2024 9:59 AM WINDOWS MIGRATION TECHNICIAN us Abdullahi Baird MD PhD LAB BLOOD ORDERABLES F inal Result [facility] [address] [facility] Department [place] [address] * Tacrolimus level trough (04/28/2024 9:28 AM WINDOWS MIGRATION TECHNICIAN) Tacrolimus trough 5.3 ng/mL Comment: Interpretive Data Testing performed by liquid chromatography-tandem mass spectrometry. Therapeutic concentrations vary depending on type of transplanted organ and time elapsed since transplant. Typical trough concentrations range from 5-15 ng/mL. This test was developed and its performance characteristics determined by the [facility] consistent with CLIA requirements. This test has not been cleared or approved by the [place] Food and Drug administration. Current interpretive data last reviewed 2019. Blood 04/28/2024 9:28 AM WINDOWS MIGRATION TECHNICIAN 04/28/2024 9:59 AM WINDOWS MIGRATION TECHNICIAN Abdullahi Baird MD PhD LAB BLOOD ORDERABLES F inal Result Performing Organization Address [facility]/ZIP Co de Phone Number [facility] [place] [address] * (ABNORMAL) CBC with auto differential (04/28/2024 9:28 AM WINDOWS MIGRATION TECHNICIAN) Pathologist [facility] WBC 5.0 3.8 - 9.9 K/cumm Hgb 11.9 11.9 - 15.5 g/dL [facility] Hct 36.3 35.6 - 45.5 % [facility] Plt 160 150 - 400 K/cumm [facility] MPV 11.4 9.1 - 12.3 fL [facility] RBC 3.68(L) 3.90 - 5.20 M/cumm [facility] MCV 98.6(H) 81.3 - 96.4 fL [facility] MCH 32.3 27.1 - 33.3 pg [facility] MCHC 32.8 32.3 - 35.7 g/dL [facility] RDW CV 13.1 11.1 - 14.9 % [facility] RDW SD 46.6 35.7 - 48.1 fL [facility] NRBC abs 0.00 0.00 - 0.01 K/cumm [facility] Blood 04/28/2024 9:28 AM WINDOWS MIGRATION TECHNICIAN 04/28/2024 9:59 AM WINDOWS MIGRATION TECHNICIAN Abdullahi Baird MD PhD LAB BLOOD ORDERABLES F inal Result [facility] [place] [address] * (ABNORMAL) Comprehensive metabolic panel (04/28/2024 9:28 AM WINDOWS MIGRATION TECHNICIAN) Pathologist [facility] Sodium 140 135 - 145 mmol/L Potassium, pl 4.0 3.3 - 4.9 mmol/L [facility] Chloride 105 97 - 110 mmol/L [facility] CO2 25 22 - 32 mmol/L [facility] Anion gap 10 2 - 15 mmol/L [facility] BUN 29(H) 6 - 25 mg/dL [facility] Creatinine 1.50(H) 0.60 - 1.10 mg/dL [facility] Glucose 88 70 - 199 mg/dL [facility] Comment: Interpretive Data Fasting glucose >/= 126 [...] 2022. Calcium 9.4 8.5 - 10.3 mg/dL [facility] Bilirubin, total 0.3 0.1 - 1.2 mg/dL [facility] Protein, pl 6.9 6.5 - 8.5 g/dL [facility] Albumin 4.2 3.5 - 5.0 g/dL [facility] Alk phos 58 40 - 130 Units/L [facility] ALT 13 7 - 45 Units/L [facility] AST 31 10 - 45 Units/L [facility] Blood 04/28/2024 9:28 AM WINDOWS MIGRATION TECHNICIAN 04/28/2024 9:59 AM WINDOWS MIGRATION TECHNICIAN us Abdullahi Baird MD PhD LAB BLOOD ORDERABLES F inal Result [facility] [address] [facility] Department [place] [address] * Hepatitis C (HCV) RNA PCR, quantitative (07/22/2021) SCRIBED HCV RNA <15 15 - 100,000,000 IUnit/mL EXTERNAL LAB HCV RNA log IU/mL <1.18 1.18 - 8.00 EXTERNAL LAB Blood specimen (specimen) 07/22/2021 us Historical Provider LAB MICROBIOLOGY - GENERA L ORDERABLES Edited Result - Final EXTERNAL LAB from Last 3 Months or Most Recently Relevant to Health Maintenance Insurance MEDICARE LIVE [address] [facility] MEDICARE [employer] Address: [address] [address] [place] MEDICARE [facility] [place] [address] [employer] Advance Directives For more information, please contact: [phone] * Full Code (Latest Code Status on File) Date Activated Date Inactivated Comments 08/27/2020 7:37 AM 08/27/2020 1:55 PM * Full Code Date Activated Date Inactivated Comments 07/20/2020 11:11 AM 08/01/2020 7:54 PM * Full Code Date Activated Date Inactivated Comments 07/18/2020 6:33 PM 07/20/2020 11:11 AM * Full Code Date Activated Date Inactivated Comments 05/23/2020 3:35 PM 05/23/2020 9:41 PM Care Teams Dry Boss Relationship Specialty Start Date End Date Dami Juárez MD PCP - General 04/27/20 Luz Elena Barnes, RN [address] [address] Associate Professor Of Criminal Justice 08/02/20 Hollie Cespedes MD [address] [place] [address] Marketing Project Manager Transplant 06/03/23
--- OUTSIDE RECORDS SUMMARY | 2024-07-22 08:05 | XMS_ITS | Encounter Summary ---
Author Organization [facility] Address [facility] [place] [address] Care Team Providers Care Car Attendant Name Role Phone Dami Juárez MD Primary Care Provider [phone] Encounter Details Date Type Department Care Team (Late st Contact Info) Description 05/25/2020 MyChart Message Enc [facility] [address] [place] [address] Argentina Carney MD [address] [place] [address] RE: Other Social History Tobacco Use Types Packs/Day [...] Sex Assigned at Female 04/12/2024 9:35 AM SENIOR MARKET RESEARCH ANALYST Legal Sex Female 6:46 PM CDT Gender Identity Not on file Sexual Orientation Not on file COVID-19 Exposure Response Date Recorded In the last month, have you been in contact with someone who was confirmed or suspected to have Coronavirus / COVID-19? No / Unsure 05/28/2020 10:49 AM CDT documented as of this encounter Functional Status [...] Notes * Argentina Carney MD - 05/29/2020 8:42 AM CDT I have responded to patient through my chart * Janet Burrows MA - 05/28/2020 3:17 PM CDT See below documented in this encounter Plan of Treatment Not on file documented as of this encounter Visit Diagnoses Not on filedocumented in this encounter Additional Health Concerns Infection Onset Date Last Indicated Resolved Time COVID-19 Rule Out 12/03/2020 12/03/2020 12/04/2020 1:54 PM CDT COVID-19 Rule Out 11/28/2022 11/28/2022 11/28/2022 2:24 PM CDT documented as of this encounter Care Teams Car Attendant Relationship Specialty Start Date End Date Dami Juárez MD [address] [place] [phone] PCP - General FAMILY PRACTICE 03/27/20 documented as of this encounter
--- OUTSIDE RECORDS SUMMARY | 2024-07-22 08:05 | XMS_ITS | Clinical Summary ---
Author Organization [facility] Address [address] [place] [address] Care Team Providers Care Mechanical Applications Engineer Name Role Phone Dami Juárez MD Primary Care Provider Allergies No known active allergies Medications levothyroxine 75 MCG tablet Take 1 tablet (75 mcg total) by mouth daily. 0 Active loratadine 10 MG tablet Take 1 tablet (10 mg total) by mouth daily. Active atorvastatin 40 MG tablet Take 1 tablet (40 mg total) by mouth nightly at bedtime. Active aspirin EC 81 MG tablet Take 1 tablet (81 mg total) by mouth daily. Active acetaminophen 325 MG tablet Take 1-2 tablets (325-650 mg total) by mouth every 6 (six) hours as needed. 1 Active acyclovir 200 mg capsule Take 1 capsule (200 mg total) by mouth 2 (two) times daily. 1 Active calcium carbonate 1250 (500 Ca) MG tablet Take 1 tablet (1,250 mg total) by mouth daily. 1 Active Cholecalciferol 50 MCG (2000 UT) Cap Take 2,000 Units by mouth daily. 1 Active fluticasone propionate 50 MCG/ACT nasal spray 1 spray by Nasal route. 1 Active Misc. Devices (RECONSTITUBE) [facility] Home micro spirometer for FEV1 monitoring 1 Active mycophenolate mofetil 500 MG tablet Take 1 tablet (500 mg total) by mouth 2 (two) times daily. 1 Active predniSONE 5 mg tablet Take 1.5 tablets (7.5 mg total) by mouth daily. 1 Active sulfamethoxazol e-trimethoprim 800-160 MG tablet 1 Active tacrolimus (PROGRAF) 1 MG capsule Take 4 capsules (4 mg total) by mouth 2 (two) times daily. 3.5 mg at night 4 mg in am 3 Active denosumab (PROLIA) 60 MG/ML injection Inject 1 mL (60 mg total) into the skin. Active pantoprazole EC (PROTONIX) 40 MG tablet Take 1 tablet (40 mg total) by mouth daily. 3 Active Active Problems Problem Noted Date Diagnosed Date Traumatic complete tear of l eft rotator cuff, subsequent encounter 05/12/2023 Avascular necrosis of left humeral head ([facility]) 05/12/2023 Impingement syndrome, shoulder, right 12/16/2022 Left shoulder pain 12/04/2022 Other closed nondisplaced fr acture of proximal end of left humerus with routine healing, subsequent encounter 10/10/2022 Senile osteoporosis 08/25/2022 Complication of transplanted lung ([facility]/ [facility]) 01/08/2021 Post-COVID syndrome 06/09/2020 Chronic pulmonary aspiration 06/09/2020 Moderate persistent asthma without complication ([facility]) 02/25/2020 COVID-19 virus infection 01/09/2020 Constipation 01/09/2020 Pulmonary fibrosis, unspecified ([facility] ) 01/06/2020 Hypothyroid 01/06/2020 History of lung transplant ([facility]) Resolved Problems Problem Noted Date Diagnosed Date Resolved Date Pulmonary acid aspiration syndrome 02/25/2020 06/09/2020 COVID-19 virus test result unknown 01/06/2020 01/09/2020 Acute respiratory failure ([facility]) 01/06/2020 01/09/2020 Immunizations Immunization Administration Dates Next Due MODERNA COVID-19 (12+) MRNA, LNP-S, PF, 100 MCG/ 0.5 ML DOSE 04/09/2020,03/12/2020 Family History Medical History Relation Comments Cancer Father Stroke Mother Relation Status Comments Father Mother Social History Tobacco Use Types Packs/Day Years Used Date Smoking Tobacco: Never Smokeless Tobacco: Never Tobacco Cessation:Counseling Given: Not Answered Alcohol Use Standard Drinks/Week Comments Not Currently 0 (1 standard drink = 0.6 oz pur e alcohol) PHQ-2 Answer Date Recorded PHQ-2 Score - If the patient scores above 3, please move on to questions 3-9 0 03/28/2020 Comments No Sex and Gender Information Value Date Recorded Sex Assigned at Female 04/12/2024 9:35 AM EXCAVATION LABORER Legal Sex Female 6:46 PM CDT Gender Identity Not on file Sexual Orientation Not on file Last Filed Vital Signs Vital Sign Reading Time Taken Comments Blood Pressure 131/78 04/14/2024 9:10 AM EXCAVATION LABORER Pulse 87 04/14/2024 9:10 AM EXCAVATION LABORER Temperature 35.9 C (96.7 F) 04/14/2024 9:10 AM EXCAVATION LABORER Respiratory Rate 16 04/14/2024 9:10 AM EXCAVATION LABORER Oxygen Saturation 99% 04/14/2024 9:10 AM EXCAVATION LABORER Inhaled Oxygen Concentration - - Weight 93.9 kg (207 lb 0.2 oz) 04/14/2024 9:10 A M EXCAVATION LABORER Height 160 cm (5' 3 ) 10/12/2023 1:56 PM CDT Body Mass Index 36.67 10/12/2023 1:56 PM CDT Plan of Treatment Health Maintenance Due Date Last Done Comments Colorectal Cancer Screening Colonoscopy (10 Years) 1955 DTaP, Tdap and Td Vaccines (1 - Tdap) 11/30/1974 Zoster Vaccines (1 of 2) 11/30/1974 Annual Medicare Wellness Visit 11/30/2020 COVID-19 Vaccine ( season) 2023 01/26/2023, 05/08/2021, 11/22/2020, Additional history exists Mammogram Screening 07/28/2025 07/29/2023, 07/15/2022, 05/28/2020 Hepatitis C Completed 07/22/2021 Dexa Scan (General) Completed 07/15/2022, RSV Immunization or 60+ Years Completed 01/26/2023 Pneumococcal Vaccine: 50+ Years Completed 01/28/2024 Meningococcal B Vaccine Aged Out No l onger eligible based on patient's age to complete this topic Meningococcal Vaccine Aged Out No manuel maria teresa eligible based on patient's age to complete this topic RSV Immunizations Under 20 Months Aged Out No longer eligible based on patient's age to complete this topic Procedures Procedure Name Priority Date/Time Associated Diagnosis Comments MG SCREENING W EVA DANIE DIGI Routine 07/29/2023 11:04 AM CDT Visit for screening mammogram BONE DENSITY/DEXA Routine 07/15/2022 1:4 7 PM CDT Osteoporosis HEPATITIS C ANTIBODY Routine 07/22/2021 9:18 AM CDT Encounter for aftercare following lung transplant from Last 3 Months or Most Recently Relevant to Health Maintenance Results * MG SCREENING W EVA DANIE DIGI (07/29/2023 11:04 AM CDT) Anatomical Region Laterality Modality Breast Bilateral Mammography 07/29/2023 12:4 8 PM CDT Impressions 07/29/2023 12:50 PM CDT IMPRESSION: No interval features to suggest malignancy. In the absence of clinical symptoms, return for annual screening mammogram due in 1 year. RECOMMENDATION: Routine Screening, Bilateral Mammogram in 1 year Clinical discussion based upon her age and personal risk factors is recommended for the following: Annual supplemental screening is encouraged for dense breast tissue, especially for patients with greater than 20% lifetime risk of breast cancer. Highest sensitivity and cancer detection rate is with MRI breast with/without IV gadolinium contrast. Recommend alternate 6 months apart between MRI and mammogram for screening. If she cannot tolerate or get approval of MRI, then breast ultrasound screening is an alternative. ASSESSMENT: ACR BI-RADS 2 - BENIGN FINDING(S) Ordered By: JESSE JAMES Interpreted By: Eliot Baugh MD, 07/29/2023 12:48 PM Narrative 07/29/2023 12:50 PM CDT EXAMINATION: BILATERAL SCREENING MAMMOGRAPHY Exam Date: 07/29/2023 10:47 AM CLINICAL INDICATION: 67 years of age female routine screening. COMPARISON: Dating back to 03/14/2015 TECHNIQUE: Digital CC & MLO views. Tomosynthesis imaging acquisition Study read with the assistance of a computer-aided detection system. TISSUE DENSITY: The breast tissue is heterogeneously dense, which may obscure small masses. FINDINGS: Heterogeneous dense breast pattern with moderate nodularity and scattered calcifications, considered benign. No suspicious grouping of microcalcifications, architectural distortion, or any suspicious nodule 3 dimensionally demonstrated in either breast. Jesse James EXCHANGE SPECIALIST MAMMO Fin al Result * BONE DENSITY/DEXA (07/15/2022 1:47 PM CDT) Anatomical Region Laterality Modality Bone Bone Density 07/15/2022 4:57 PM CDT Addenda Addendum by Seb Mandel MD on 07/16/2022 8:36 AM CDT ADDENDUM: DEXA scan of 05/28/2020 is now available for comparison. There has been interval decrease in bone mineral density of the lumbar spine and left femoral neck. Ordered By: JESSE JAMES Interpreted By: Seb Mandel, 07/16/2022 8:33 AM Impressions 07/15/2022 4:58 PM CDT IMPRESSION: WHO Classification: Osteoporosis RECOMMENDATIONS: All patients should ensure an adequate intake of dietary calcium and vitamin D. The NOF recommend adults under the age of 50 need 1000 mg of calcium and 400-800 IU of vitamin D daily. Effective therapy for the prevention and treatment of osteoporosis include bisphosphonates. FOLLOW-UP: People with diagnosed cases of osteoporosis or at high risk for fracture should have regular bone mineral density test. For patients eligible for Medicare, routine testing is allowed once every 2 years. Testing frequency can be increased to one year for patients who have rapidly progressing disease, those who are receiving or discontinuing medical therapy to restore bone mass, or have additional risk factors. Ordered By: JESSE JAMES Interpreted By: Seb Mandel, 07/15/2022 4:57 PM Narrative 07/15/2022 4:58 PM CDT EXAMINATION: BONE DENSITY/DEXA INDICATIONS: Age-related osteoporosis without current pathological fracture COMPARISON: None TECHNIQUE: DEXA bone mineral density evaluation was performed in the AP projection over the lumbar spine and both hips utilizing standard imaging techniques. FINDINGS: The BMD measured at the AP spine L1-L4 is 0.622 g/cm? with a T-score of -3.9. The BMD measured at the left femoral neck is 0.588 g/cm? with a T-score of -2.3. The BMD measured at the left hip is 0.833 g/cm? with a T-score of -0.9. The BMD measured at the right femoral neck is 0.591 g/cm? with a T-score of - 2.3. The BMD measured at the right hip is 0.758 g/cm? with a T-score of -1.5. FRAX 10-year fracture risk: Major Osteoporotic Fracture: 12% Hip Fracture: 2.1% Procedure Note Seb Mandel MD - 07/15/2022 EXAMINATION: BONE DENSITY/DEXA INDICATIONS: Age-related osteoporosis without current pathologicalfracture COMPARISON: None TECHNIQUE: DEXA bone mineral density evaluation was performed in the APprojection over the lumbar spine and both hips utilizing standard imagingtechniques. FINDINGS: The BMD measured at the AP spine L1-L4 is 0.622 g/cm? with a T-score of-3.9. The BMD measured at the left femoral neck is 0.588 g/cm? with a T-score of-2.3. The BMD measured at the left hip is 0.833 g/cm? with a T-score of -0.9. The BMD measured at the right femoral neck is 0.591 g/cm? with a T-scoreof -2.3. The BMD measured at the right hip is 0.758 g/cm? with a T-score of -1.5. FRAX 10-year fracture risk: Major Osteoporotic Fracture: 12% Hip Fracture: 2.1% IMPRESSION: WHO Classification: Osteoporosis RECOMMENDATIONS: All patients should ensure an adequate intake of dietary calcium andvitamin D. The NOF recommend adults under the age of 50 need 1000 mg ofcalcium and 400-800 IU of vitamin D daily. Effective therapy for theprevention and treatment of osteoporosis include bisphosphonates. FOLLOW-UP: People with diagnosed cases of osteoporosis or at high risk for fractureshould have regular bone mineral density test. For patients eligible forMedicare, routine testing is allowed once every 2 years. Testing frequencycan be increased to one year for patients who have rapidly progressingdisease, those who are receiving or discontinuing medical therapy torestore bone mass, or have additional risk factors. Ordered By: JESSE JAMES Interpreted By: Seb Mandel, 07/15/2022 4:57 PM Jesse James EXCHANGE SPECIALIST DEXA Leroy kaitlynn Result - Final * HEPATITIS C ANTIBODY (07/22/2021 9:18 AM CDT) HEPATITIS C AB NON-REACTI VE NON-REACT HUGH 07/23/2021 7:[address] [facility] Comment: ANTIBODIES TO HCV NOT DETECTED. DOES NOT EXCLUDE THE POSSIBILITY OF EXPOSURE TO HCV. 07/22/2021 9:18 AM CDT Tanner Pitts MD LABORATORY Final Result [facility] [address] [place] [address], [id number] from Last 3 Months or Most Recently Relevant to Health Maintenance Insurance [facility] MEDICARE Advance Directives * Full Code (Latest Code Status on File) Date Activated Date Inactivated Comments 01/06/2020 4:18 PM 01/13/2020 6:33 PM * Full Code Date Activated Date Inactivated Comments 12/06/2019 12:26 PM 12/08/2019 8:40 PM Care Teams Mechanical Applications Engineer Relationship Specialty Start Date End Date Dami Juárez MD [address] [place] [phone] PCP - General FAMILY PRACTICE 03/27/20
--- OUTSIDE RECORDS SUMMARY | 2024-07-22 08:05 | XMS_ITS | Encounter Summary ---
Author Organization [facility] Address [facility] [place] [address] Care Team Providers Care Pouncer Name Role Phone Antonio Carlos MD Primary Care Provider [phone] Dami Juárez MD Primary Care Provider [phone] Encounter Details Date Type Department Care Team (Late st Contact Info) Description 03/05/2020 MyChart Message Enc [facility] [address] [place] [address] Argentina Carney MD [address] [place] [address] RE: RE: Medication Questions Social History Tobacco Use Types Packs/Day Years Used Date Smoking Tobacco: Never Smokeless Tobacco: Never Alcohol Use Standard Drinks/Week Comments Not Currently 0 (1 standard drink = 0.6 oz pur e alcohol) Comments No Sex and Gender Information Value Date Recorded Sex Assigned at Female 04/12/2024 9:35 AM TAB BUILDER Legal Sex Female 6:46 PM CDT Gender Identity Not on file Sexual Orientation Not on file COVID-19 Exposure Response Date Recorded In the last month, have you been in contact with someone who was confirmed or suspected to have Coronavirus / COVID-19? No / Unsure 02/22/2020 2:07 PM TAB BUILDER documented as of this encounter Functional Status [...] Miller RN Active documented in this encounter Progress Notes * Argentina Carney MD - 03/06/2020 8:30 AM CST I have responded to patient through my chart. BUILDER * Janet Burrows MA - 03/06/2020 8:19 AM CST Pt also asking if she should receive a Covid vaccine and if so which one? BUILDER * Argentina Carney MD - 03/05/2020 9:32 AM CST I have responded to patient through my chart. BUILDER * Janet Burrows MA - 03/05/2020 8:51 AM CST Please advise BUILDER documented in this encounter Plan of Treatment Not on file documented as of this encounter Visit Diagnoses Not on filedocumented in this encounter Additional Health Concerns Infection Onset Date Last Indicated Resolved Time COVID-19 Confirmed 01/06/2020 01/06/2020 0 12:35 AM TAB BUILDER COVID-19 Rule Out 04/26/2020 04/26/2020 04/28/2020 9:12 AM TAB BUILDER COVID-19 Rule Out 12/03/2020 12/03/2020 12/04/2020 1:54 PM CDT COVID-19 Rule Out 11/28/2022 11/28/2022 11/28/2022 2:24 PM CDT documented as of this encounter Care Teams Pouncer Relationship Specialty Start Date End Date Antonio Carlos MD [address] [place] [phone] PCP - General FAMILY PRACTICE 05/06/19 03/26/20 Dami Juárez MD [address] [place] [phone] PCP - General FAMILY PRACTICE 03/27/20 documented as of this encounter
--- OUTSIDE RECORDS SUMMARY | 2024-07-22 08:05 | XMS_ITS | Clinical Summary ---
Author Organization [facility] Address [address] [facility] [place] [phone] Phone Care Team Providers Care Courtesy Booth Cashier Name Role Phone Unavailable Primary Care Provider Unavailabl e Active Problems Problem Noted Date Diagnosed Date Transplanted, lung 09/04/2020 Social History Tobacco Use Types Packs/Day Years Used Date Smoking Tobacco: Never Assessed Comments Unknown Sex and Gender Information Value Date Recorded Sex Assigned at Not on file Legal Sex Female 2:48 PM CDT Gender Identity Not on file Sexual Orientation Not on file Plan of Treatment Health Maintenance Due Date Last Done Comments DTAP/TDAP/TD VACCINES (1 - Tdap) 11/30/1974 BREAST CANCER SCREENING 1995 COLORECTAL SCREENING 11/30/2000 Colorectal Cancer Screening 11/30/2000 FIT-DNA Q 3 years 11/30/2000 FIT/FOBT Q 1 year 11/30/2000 Flex Sig/CT Colonography Q 5 years 11/30/2000 PNEUMOCOCCAL VACCINE 50+ YEARS (1 of 1 - PCV) 12/01/19 06 ZOSTER VACCINE (1 of 2) 11/30/2005 OSTEOPOROSIS SCREENING 11/30/2020 INFLUENZA VACCINE (#1) 2023 RSV VACCINE (60+ or ) (1 - 1-dose 75+ series) 11/30/2030
--- OUTSIDE RECORDS SUMMARY | 2024-07-22 08:05 | XMS_ITS | Encounter Summary ---
Author Organization [facility] Address [facility] [place] [address] Care Team Providers Care Admissions Clinician Name Role Phone Dami Juárez MD Primary Care Provider [phone] Encounter Details Date Type Department Care Team (Late st Contact Info) Description 04/23/2020 MyChart Message Enc [facility] [address] [place] [address] Argentina Carney MD [address] [place] [address] RE: RE: RE: FW: Question Social History Tobacco Use Types Packs/Day [...] Sex Assigned at Female 04/12/2024 9:35 AM HIGH SCHOOL AUTO REPAIR TEACHER Legal Sex Female 6:46 PM CDT Gender Identity Not on file Sexual Orientation Not on file COVID-19 Exposure Response Date Recorded In the last month, have you been in contact with someone who was confirmed or suspected to have Coronavirus / COVID-19? No / Unsure 04/26/2020 2:54 PM HIGH SCHOOL AUTO REPAIR TEACHER documented as of this encounter Functional Status [...] Assessment Author Status No 01/06/2020 4:09 PM DEONDRET Heydi Pal RN Active * Do you [...] Progress Notes * Argentina Carney MD - 04/25/2020 10:45 AM CST I have responded to patient through my chart SCHOOL AUTO REPAIR TEACHER * Janet Burrows MA - 04/24/2020 12:17 PM CST See below SCHOOL AUTO REPAIR TEACHER * Argentina Carney MD - 04/24/2020 10:33 AM CST I have responded to patient through my chart. SCHOOL AUTO REPAIR TEACHER * Janet Burrows MA - 04/24/2020 8:19 AM CST See below SCHOOL AUTO REPAIR TEACHER documented in this encounter Plan of Treatment Not on file documented as of this encounter Visit Diagnoses Not on filedocumented in this encounter Additional Health Concerns Infection Onset Date Last Indicated Resolved Time COVID-19 Rule Out 04/26/2020 04/26/2020 04/28/2020 9:12 AM HIGH SCHOOL AUTO REPAIR TEACHER COVID-19 Rule Out 12/03/2020 12/03/2020 12/04/2020 1:54 PM CDT COVID-19 Rule Out 11/28/2022 11/28/2022 11/28/2022 2:24 PM CDT documented as of this encounter Care Teams Admissions Clinician Relationship Specialty Start Date End Date Dami Juárez MD [address] [place] [phone] PCP - General FAMILY PRACTICE 03/27/20 documented as of this encounter
--- OUTSIDE RECORDS SUMMARY | 2024-07-22 08:05 | XMS_ITS | Encounter Summary ---
Author Organization [facility] Address [address] [place] [address] Care Team Providers Care Wildlife Photographer Name Role Phone Antonio Carlos MD Primary Care Provider [phone] Dami Juárez MD Primary Care Provider [phone] Encounter Details Date Type Department Care Team (Late st Contact Info) Description 08/21/2018 Abstract SFL CONVERSION [address] [place] [address] , Generic Conversion, Social History Tobacco Use Types Packs/Day Years Used Date Smoking Tobacco: Never Assessed Comments Unknown Sex and Gender Information Value Date Recorded Sex Assigned at Female 04/12/2024 9:35 AM MEDICAL FRONT DESK SPECIALIST Legal Sex Female 6:46 PM CDT Gender Identity Not on file Sexual Orientation Not on file documented as of this encounter Plan of Treatment Not on file documented as of this encounter Visit Diagnoses Not on filedocumented in this encounter Additional Health Concerns Infection Onset Date Last Indicated Resolved Time COVID-19 Rule Out 12/03/2019 12/03/2019 12/04/2019 6:10 PM CDT COVID-19 Rule Out 01/06/2020 01/06/2020 01/08/2020 4:51 PM CDT COVID-19 Confirmed 01/06/2020 01/06/2020 12:35 AM MEDICAL FRONT DESK SPECIALIST COVID-19 Rule Out 04/26/2020 04/26/2020 04/28/2020 9:12 AM MEDICAL FRONT DESK SPECIALIST COVID-19 Rule Out 12/03/2020 12/03/2020 12/04/2020 1:54 PM CDT COVID-19 Rule Out 11/28/2022 11/28/2022 11/28/2022 2:24 PM CDT documented as of this encounter Care Teams Wildlife Photographer Relationship Specialty Start Date End Date Antonio Carlos MD [address] [place] [phone] PCP - General FAMILY PRACTICE 05/06/19 03/26/20 Dami Juárez MD [address] [place] [phone] PCP - General FAMILY PRACTICE 03/27/20 documented as of this encounter
--- OUTSIDE RECORDS SUMMARY | 2024-07-22 08:05 | XMS_ITS | Encounter Summary ---
Author Organization [facility] Address [address] [place] [address] Care Team Providers Care Medical Research Assistant Name Role Phone Antonio Carlos MD Primary Care Provider [phone] Dami Juárez MD Primary Care Provider [phone] Encounter Details Date Type Department Care Team (Late st Contact Info) Description 03/06/[address] [facility] [address] [place] [address] Argentina Carney MD [address] [place] [address] RE: Question Social History Tobacco Use Types Packs/Day Years Used Date Smoking Tobacco: Never Smokeless Tobacco: Never Alcohol Use Standard Drinks/Week Comments Not Currently 0 (1 standard drink = 0.6 oz pur e alcohol) Comments No Sex and Gender Information Value Date Recorded Sex Assigned at Female 04/12/2024 9:35 AM CIVIL RIGHTS REPRESENTATIVE Legal Sex Female 6:46 PM CDT Gender Identity Not on file Sexual Orientation Not on file COVID-19 Exposure Response Date Recorded In the last month, have you been in contact with someone who was confirmed or suspected to have Coronavirus / COVID-19? No / Unsure 02/22/2020 2:07 PM CIVIL RIGHTS REPRESENTATIVE documented as of this encounter Functional Status [...] Progress Notes * Janet Burrows MA - 03/06/2020 11:36 AM CST See below L RIGHTS REPRESENTATIVE documented in this encounter Plan of Treatment Not on file documented as of this encounter Visit Diagnoses Not on filedocumented in this encounter Additional Health Concerns Infection Onset Date Last Indicated Resolved Time COVID-19 Confirmed 01/06/2020 01/06/2020 0 12:35 AM CIVIL RIGHTS REPRESENTATIVE COVID-19 Rule Out 04/26/2020 04/26/2020 04/28/2020 9:12 AM CIVIL RIGHTS REPRESENTATIVE COVID-19 Rule Out 12/03/2020 12/03/2020 12/04/2020 1:54 PM CDT COVID-19 Rule Out 11/28/2022 11/28/2022 11/28/2022 2:24 PM CDT documented as of this encounter Care Teams Medical Research Assistant Relationship Specialty Start Date End Date Antonio Carlos MD [address] [place] [phone] PCP - General FAMILY PRACTICE 05/06/19 03/26/20 Dami Juárez MD [address] [place] [phone] PCP - General FAMILY PRACTICE 03/27/20 documented as of this encounter
== END 2024-07-22 08:02 | disposition home or self-care (01) ==
LOC: ANHAUDASC 08:02
PROVIDERS: PCP Family Medicine; Visit Provider Otolaryngology
DX: H90.3 Sensorineural hearing loss, bilateral (principal); H93.13 Tinnitus, bilateral
CPT/HCPCS: 92557; 92567

== ENCOUNTER 2024-08-15 01:18 | Day surgery (SDC) | payer MEDICARE, OTHER, SELFPAY ==
[2024-07-29 14:49] VITALS: BMI 36.3
--- NOTE | 2024-07-29 15:02 | PC.NURSE ---
Report to the Outpatient Waiting Room, entrance under the green pavilion located off [facility], at time __1000am on date _08/15/24 . Planned Procedure Time: 1200pm .? Time changes happen often and if your time is changed the preop area will call you the afternoon before. - You and your visitor will be asked to self-screen and do not enter if you have any COVID symptoms. Please call surgeon if you need to reschedule. - A mask is optional within the hospital at this time. Patients may have clear liquids (water, carbonated beverages, clear teas, apple juice) until 3 hours prior to surgery with a maximum of 20 ounces. - No food from midnight until time of surgery and no smoking, or chewing tobacco (or any form of nicotine). No chewing gum, candy or mints. (0900am) Take only the following medications with a SIP of water on the morning of surgery: __Levothyroxine, Prednisone, Mycopheolate mofeitil, Acyclovir and Tacrolimus (as prescribed Antirejection meds) DO NOT STOP ANY OF YOUR OTHER PRESCRIPTION MEDICATIONS PRIOR TO SURGERY EXCEPT THE FOLLOWING Hold all vitamins and supplements for 3 days per anesthesiologist. Date of last dose is 08/11/24 Medications to discontinue per physician ___Aspirin for [address] Hill, Date to take last dose___08/09/24 Please no make-up, nail lithuanian, hairspray, perfume, deodorant, or body powder the day of surgery.? No jewelry (including any body piercings) or valuables the day of surgery, leave them at home.? Please take a shower or bath the night before, or the morning of, surgery with an antibacterial soap.? Wear comfortable, loose fitting clothing.? - Jewelry must be removed prior to entering the operating room.? Rings and piercings that are not removed may be cut off. - The hospital will not accept responsibility for valuables.? - Please leave all valuables, including medications, at home the day of surgery. If you are going home after surgery, a licensed petrol tanker driver must drive you home.? - NO public transportation without another adult if you receive anesthesia. - We recommend that an adult stay with you for 24 hours following discharge. - We also recommend that you do not drive, make important decision, drink alcoholic beverages, or take any drugs that were not prescribed by your health care provider for at least 24 hours after your discharge time. Follow any additional instructions given to you from your surgeon. Telephone instructions given to __Patient and asked if any additional questions and then verbalized understanding. Patient advised to call surgeon office or pre surgery nurse liaison [phone] if any additional questions.
[2024-08-15] VITALS (7 sets, daily range): BP systolic 143–181; BP diastolic 80–93; PULSE 75–83; RESP 16–20; TEMP 36.2–36.4; O2SAT 97–100
--- OUTSIDE RECORDS SUMMARY | 2024-08-15 01:21 | XMS_ITS ---
Author Organization [facility] Address [address] [place] [address] Care Team Providers Care Kayaking Instructor Name Role Phone Dami Juárez MD Primary Care Provider [phone] Luz Elena Barnes RN Unavailable [phone] Hollie Cespedes MD Unavailable [phone] Transplant Episode Lung Recipient [facility] ([place], [place]) [facility] Organs Received: Right Lung, Left Lung Transplanted on 07/19/2020 Marked as Active Follow-up on 07/19/2020 Lung CoordinatorLuz Elena Barnes RN Fax: N/A Email: N/A [place] Organ Diagnosis Organ Primary Contributory Lung Pulmonary [...] Name Role Phone Fax Email Luz Elena Barnes RN Lung Coordinator [phone] N/A N/A Sharon Graycj [employer] Equipment Servicer [phone] N/A N/A Kane Mayorga MD PhD Surgeon [phone] N/A Luz Elena Barnes, KORINA Post Coordinator [phone] N/A N/A Madhavi Cruz RD Dietitian N/A N/A N/A Gallo Farmer, [facility] Pharmacist N/A N/A N/A Hollie Cespedes MD Electronic Pagination System Operator [phone] N/A Argentina Carney MD Referring Physician [phone] N/A ASHTYN RehmanW Wood Type Cutter N/A N/A N/A Jessica Hernandez, KORINA Pre Coordinator N/A N/A N/A Juaquin Perez MD Surgeon [phone] N/A Events Post-Transplant Pre-Transplant Admitted: 07/18/2020 Referred: 04/10/2020 Transplanted: 07/19/2020 Evaluation began: 1 Discharged: 08/01/2020 Committee: 05/31/2020 Center waitlisted: 1 Appointments (07/15/2024 - 09/14/2024) When With Visit Type Description 07/28/2024 Transplant - Oli, Александр Return Encoun ter for aftercare following lung transplant (HCC) (Primary Dx); Encounter for monitoring tacrolimus therapy; 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
--- OUTSIDE RECORDS SUMMARY | 2024-08-15 01:21 | XMS_ITS | Clinical Summary ---
Author Organization 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 Active aspirin 81 mg enteric coated tablet Take 81 mg by mouth daily Active acetaminophen (TYLENOL) 325 mg tablet Take 1-2 tablets (325-650 mg total) by mouth every 6 (six) hours as needed for pain 08/02/19 21 Active calcium carbonate (OS-MARY ANNE) 1,250 MG (500 mg of elemental calcium) tablet Take 1 tablet (1,250 mg total) by mouth daily 08/02/19 21 Active cholecalcifer ol (VITAMIN D-3) 2000 unit capsule Take 1 capsule (2,000 Units total) by mouth daily 08/02/19 21 Active fluticasone propionate (FLONASE) 50 mcg/actuation nasal spray Administer 1 spray into each nostril 2 (two) times a day as needed for rhinitis or allergies 1 Inhaler 09/25/19 21 Active loratadine (CLARITIN) 10 mg tablet Take 1 tablet (10 mg total) by mouth daily as needed for allergies 09/25/19 21 Active rosuvastatin (CRESTOR) 10 mg tablet TAKE 1 TABLET BY MOUTH DAILY 90 tablet 3 11/14/[address] (PROTONIX) 40 mg EC tablet TAKE 1 TABLET BY MOUTH DAILY 90 tablet 3 06/17/19 23 Active denosumab (PROLIA) 60 mg/mL syringe Inject under the skin once Managed by PCP. Active acyclovir (ZOVIRAX) 200 mg capsule Take 1 capsule (200 mg total) by mouth 2 (two) times a day 60 capsule 11 06/16/19 25 Active sulfamethoxaz ole-trimethop rim (BACTRIM DS) 800-160 mg per tablet Take 1 tablet (160 mg of trimethoprim total) by mouth 3 (three) times a week 13 tablet 11 06/16/19 25 Active predniSONE (DELTASONE) 5 mg tablet Take 1.5 tablets (7.5 mg) by mouth daily 45 tablet 07/21/19 25 025 Active mycophenolate mofetil (CELLCEPT) 500 mg tablet Take 1 tablet (500 mg total) by mouth 2 (two) times a day 60 tablet 07/21/19 25 Active tacrolimus 1 mg immediate-rel ease capsuleIndica tions:immunos uppression Take 3 capsules (3 mg total) by mouth every morning AND 3 capsules (3 mg total) nightly. 07/30/19 25 Active cefdinir (OMNICEF) 300 mg capsule Take 1 capsule (300 mg total) by mouth 2 (two) times a day for 7 days 14 capsule 08/10/19 25 025 Active mycophenolate mofetil (CELLCEPT) 500 mg tablet TAKE ONE TABLET BY MOUTH TWICE A DAY 60 tablet 07/15/19 24 025 Discontinued(R eorder) predniSONE (DELTASONE) 5 mg tablet TAKE ONE AND ONE HALF TABLET BY MOUTH ONCE DAILY 45 tablet 07/15/19 24 025 Discontinued(R eorder) tacrolimus 1 mg immediate-rel ease capsuleIndica tions:immunos uppression Take 4 capsules (4 mg total) by mouth every morning AND 3 capsules (3 mg total) nightly. 210 capsule 04/25/19 25 025 Discontinued Active Problems Problem Noted Date Diagnosed Date [...] (04/23/2020): Added automatically from request for surgery [id number] Assessment & Plan (08/01/2020 7:56 AM CDT): [...] Encounter for aftercare following lung transplan t ([facility]) Encounters Date Type Department Care Team Description 08/11/2024 Telephone [facility] Transplant Lung [address] [facility] [address] [phone] [place] [address] Lakisha Bashir 08/10/2024 Telephone [facility] Transplant Lung [address] [facility] [address] [id number] [place] [address] Mary Myrickle 08/09/2024 Telephone [facility] Transplant Lung [address] [facility] [address] [id number] [place] [address] Luz Elena Barnes, client services manager Results 07/29/2024 Telephone [facility] Transplant Lung [address] [facility] [address] Mail[address] [phone] [place] [address] Luz Elena Barnes, client services manager Results 07/28/2024 10:30 AM CDT Lab [facility] [address] [place], [place] [id number] Encounter for aftercare following lung transplant (HCC); Long-term use of immunosuppressant medication; Encounter for therapeutic drug level monitoring; Aftercare following organ transplant 07/28/2024 10:00 AM CDT Office Visit [facility] [address] [facility] 8[address] [place] [id number] Abdullahi Baird MD PhD Encounter for aftercare following lung transplant (HCC) (Primary Dx); Encounter for monitoring tacrolimus therapy; 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 07/28/2024 9:42 AM CDT - 07/28/2024 11:59 PM CDT Hospital Encounter [facility] [address] [phone] Encounter for aftercare following lung transplant (HCC) Discharge Disposition: Discharge to home or self care 07/28/2024 9:16 AM CDT - 07/28/2024 11:59 PM CDT Hospital Encounter [facility] ([facility] [address] [place] [address] Encounter for aftercare following lung transplant (HCC) Discharge Disposition: Discharge to home or self care 07/20/2024 Orders Only [facility] Transplant Lung [address] [facility] [address] Mailstop [phone] [place] [address] Luz Elena Barnes, KORINA 07/05/2024 Orders Only [facility] Transplant Lung [address] [facility] [address] Mail[address] [phone] [place] [address] Luz Elena Barnes, KORINA Encounter for aftercare following lung transplant (HCC) (Primary Dx); Long-term use of immunosuppressant medication; Encounter for therapeutic drug level monitoring; Aftercare following organ transplant 06/15/2024 Orders Only [facility] Transplant Lung [address] 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 Gender Identity Not on file Sexual Orientation Not on file Obstetrics History Last Filed Vital Signs Vital Sign Reading Time Taken Comments Blood Pressure 161/79 07/28/2024 10:06 AM CDT Pulse 84 07/28/2024 10:06 AM CDT Temperature 36 C (96.8 F) 07/28/2024 10:06 AM CDT Respiratory Rate 18 07/28/2024 10:06 AM CDT Oxygen Saturation 100% 07/28/2024 10:06 AM CDT Inhaled Oxygen Concentration - - Weight 93 kg (205 lb) 07/28/2024 10:06 AM CDT Height 158.8 cm (5' 2.5) 07/28/2024 10:06 AM CD T Body Mass Index 36.9 07/28/2024 10:06 AM CDT Plan of Treatment Health Maintenance Due Date Last Done Comments Colon Cancer Screening-Colonoscopy 1955 DTaP/Tdap/Td Vaccine (1 - Tdap) 11/30/1966 Hepatitis B Screening 11/30/1973 Zoster Vaccine (1 of 2) 11/30/1974 Well Visit 65+ 11/30/2020 Depression Screening 10/15/2021 10/15/2020, 09/19/2020, 08/02/2020 Fall Risk Assessment 07/18/2022 07/18/2021 Covid-19 Vaccine (2023-04 5 season) 2023 01/26/2023, 01/26/2023, 01/17/2022, Additional history exists Osteoporosis Screening-Bone Density Scan 07/15/2024 07/15/2022, 05/28/2020 Breast Cancer Screening-Mammogram 07/28/2024 07/29/2023, 07/29/2023, 07/15/2022, Additional history exists Hepatitis C Screening Completed 07/22/2021 , 07/17/2021, 01/21/2021, Additional history exists Influenza Vaccine Completed 01/26/2024, , 01/10/2022 Pneumococcal vaccine 65+ Completed 04/28/2024, 01/14 Medical Devices Implanted Type Area Sketch Maker Device Identifier Shelf Expiration Date Model / Serial / Lot Daig Emily[employer] [id number] Angio-Seal Evolution 8fr .038in Guidewire Bypass Tube Suture - [id number] - [id number] Implanted:Qty: 1 on 05/23/2020 by Reji Lao MD at [facility] 01/13/2021 [id number] / [id number] / [id number] Daig [employer] [id number] Angio-Seal Evolution 6fr .035in Guidewire Bypass Tube Suture - [id number] - [id number] Implanted:Qty: 1 on 05/23/2020 by Reji Lao MD at [facility] 02/12/2021 [id number] / [id number] / [id number] Procedures Procedure Name Priority Date/Time Associated Diagnosis Comments URINALYSIS, MACROSCOPIC Routine 08/09/2024 TACROLIMUS LEVEL, TROUGH Routine 08/06/2024 CBC WITH AUTO DIFFERENTIAL Routine 08/06/2024 COMPREHENSIVE METABOLIC PANEL Routine 08/06/2024 PULMONARY FUNCTION TEST (PFT) Routine 07/28/2024 10:01 AM CDT Encounter for aftercare following lung transplant (HCC) XR CHEST PA LATERAL 2 VIEWS Schedule Routine, Read Routine (OP Routine) 07/28/2024 9:19 AM CDT Encounter for aftercare following lung transplant (HCC) TACROLIMUS LEVEL, TROUGH Routine 07/28/2024 9:18 AM CDT Encounter for aftercare following lung transplant (HCC) Long-term use of immunosuppressant medication Encounter for therapeutic drug level monitoring Aftercare following organ transplant CBC WITH AUTO DIFFERENTIAL Routine 07/28/2024 9:18 AM CDT Encounter for aftercare following lung transplant (HCC) Long-term use of immunosuppressant medication Encounter for therapeutic drug level monitoring Aftercare following organ transplant COMPREHENSIVE METABOLIC PANEL Routine 07/28/2024 9:18 AM CDT Encounter for aftercare following lung transplant (HCC) Long-term use of immunosuppressant medication Encounter for therapeutic drug level monitoring Aftercare following organ transplant EGFR Routine 07/28/2024 9:18 AM CDT DIFFERENTIAL AUTO Routine 07/28/2024 9:1 8 AM CDT HEMOGLOBIN A1C Routine 07/28/2024 9:18 AM CDT Encounter for aftercare following lung transplant (HCC) Long-term use of immunosuppressant medication Encounter for therapeutic drug level monitoring Aftercare following organ transplant LIPID PANEL Routine 07/28/2024 9:18 AM CDT Encounter for aftercare following lung transplant (HCC) Long-term use of immunosuppressant medication Encounter for therapeutic drug level monitoring Aftercare following organ transplant TSH Routine 07/28/2024 9:18 AM CDT Encounter for aftercare following lung transplant (HCC) Long-term use of immunosuppressant medication Encounter for therapeutic drug level monitoring Aftercare following organ transplant T4, FREE Routine 07/28/2024 9:18 AM CDT Encounter for aftercare following lung transplant (HCC) Long-term use of immunosuppressant medication Encounter for therapeutic drug level monitoring Aftercare following organ transplant VITAMIN D 25 HYDROXY Routine 07/28/2024 9:18 AM CDT Encounter for aftercare following lung transplant (HCC) Long-term use of immunosuppressant medication Encounter for therapeutic drug level monitoring Aftercare following organ transplant HEPATITIS C RNA, QUANTITATIVE, PCR Routine 07/22/2021 from Last 3 Months or Most Recently Relevant to Health Maintenance Results * Urinalysis, macroscopic Urine (08/09/2024) SCRIBED Urine-Color YELLOW EXTERNAL LAB SCRIBED Urine-Clarity CLEAR EXTERNAL LAB SCRIBED Specific [place], Urine 1.025 1.000 - 1.025 EXTERNAL LAB SCRIBED pH, Urine 5.5 5.0 - 8.0 EXTERNAL LAB SCRIBED Glucose, Quant, Urine NEGATIVE NEGATIVE EXTERNAL LAB SCRIBED Protein, Urine 1+ NEGATIVE EXTERNAL LAB SCRIBED Ketone, Urine TRACE NEGATIVE EXTERNAL LAB SCRIBED Bilirubin, Urine NEGATIVE NEGATIVE EXTERNAL LAB SCRIBED Urobilinogen, Semi-QN 1.0 <1.0 EXTERNAL LAB SCRIBED Blood, Urine 1+ NEGATIVE EXTERNAL LAB SCRIBED Nitrite, Urine NEGATIVE NEGATIVE EXTERNAL LAB SCRIBED Leukocyte Esterase, Urine 1+ NEGATIVE EXTERNAL LAB SCRIBED RBC, Urine 5-10 0 - 5 /HPF EXTERNAL LAB SCRIBED WBC, Urine 10-20 0 - 5 EXTERNAL LAB SCRIBED Bacteria, Urine FEW /HPF EXTERNAL LAB SCRIBED Epithelial Cells, Urine FEW /HPF EXTERNAL LAB Urine 08/09/2024 Historical Provider LAB MICROBIOLOGY - GENERA L ORDERABLES Edited Result - Final Performing Organization Address City/[facility]/ZIP Co de Phone Number EXTERNAL LAB * Tacrolimus level trough (08/06/2024) SCRIBED Tacrolimus, trough 5.6 5.0 - 20.0 EXTERNAL LAB Blood 08/06/2024 Historical Provider MD LAB BLOOD ORDERABLES Seble l Result EXTERNAL LAB * (ABNORMAL) CBC with auto differential (08/06/2024) SCRIBED WBC 6.00 4.00 - 10.80 k/cumm EXTERNAL LAB SCRIBED RBC 3.51(A) 4.10 - 5.40 m/cumm EXTERNAL LAB SCRIBED Hemoglobin 11.3(A) 12.0 - 16.0 g/dL EXTERNAL LAB SCRIBED Hematocrit 34.8(A) 36.0 - 47.0 % EXTERNAL LAB SCRIBED MCH 32.2(A) 27.0 - 31.0 pg EXTERNAL LAB SCRIBED MCHC 32.5(A) 33.0 - 36.0 g/dL EXTERNAL LAB SCRIBED RDW 13.2 11.5 - 14.5 g/dl EXTERNAL LAB SCRIBED Platelets 144(A) 150 - 350 k/cumm EXTERNAL LAB SCRIBED MPV 11.5(A) 7.4 - 10.4 fL EXTERNAL LAB SCRIBED NRBC 0.0 NA - NA /100 WBC EXTERNAL LAB SCRIBED Lymphocytes 22.5 NA - NA % EXTERNAL LAB SCRIBED Monocytes 13.7 NA - NA % EXTERNAL LAB SCRIBED Neutrophils 61.3 NA - NA % EXTERNAL LAB SCRIBED Imm Granulocytes 1.0 NA - NA % EXTERNAL LAB SCRIBED Eosinophils 1.2 NA - NA % EXTERNAL LAB SCRIBED Basophils 0.3 NA - NA % EXTERNAL LAB SCRIBED Lymphocytes Abs 1.35 0.80 - 4.70 k/cumm EXTERNAL LAB SCRIBED Monocytes Abs 0.82 0.00 - 1.50 k/cumm EXTERNAL LAB SCRIBED Neutrophils Abs 3.68 1.60 - 8.30 k/cumm EXTERNAL LAB SCRIBED Imm Granulocytes Abs 0.06(A) 0.00 - 0.03 EXTERNAL LAB SCRIBED Eosinophils Abs 0.07 0.00 - 0.40 k/cumm EXTERNAL LAB SCRIBED Basophils Abs 0.02 0.00 - 0.20 k/cumm EXTERNAL LAB SCRIBED MCV 99.1 78.0 - 100.0 fl EXTERNAL LAB Blood 08/06/2024 us Historical Provider LAB BLOOD ORDERABLES Edit ed Result - Final EXTERNAL LAB * (ABNORMAL) Comprehensive metabolic panel (08/06/2024) SCRIBED Sodium 140 136 - 145 mmol/L EXTERNAL LAB SCRIBED Potassium 4.1 3.5 - 5.1 mmol/L EXTERNAL LAB SCRIBED Chloride 105 98 - 107 mmol/L EXTERNAL LAB SCRIBED Carbon Dioxide 28.2 21.0 - 32.0 mmol/L EXTERNAL LAB SCRIBED Anion Gap 6.8 5.0 - 15.0 mmol/L EXTERNAL LAB SCRIBED Urea Nitrogen (BUN) 38(A) 6 - 24 mg/dl EXTERNAL LAB SCRIBED Creatinine 1.82(A) 0.55 - 1.02 mg/dl EXTERNAL LAB SCRIBED Glucose 90 70 - 99 mg/dl EXTERNAL LAB SCRIBED Calcium 9.3 8.4 - 10.5 mg/dl EXTERNAL LAB SCRIBED Bilirubin 0.5 0.2 - 1.0 mg/dl EXTERNAL LAB SCRIBED Plasma Protein 6.5 6.4 - 8.2 g/dl EXTERNAL LAB SCRIBED Albumin 3.6 3.4 - 5.0 g/dl EXTERNAL LAB SCRIBED Alkaline Phosphatase 65 55 - 142 Units/L EXTERNAL LAB SCRIBED Alanine Transaminase (ALT) 22 14 - 59 Units/L EXTERNAL LAB SCRIBED Aspartate Transaminase (AST) 20 15 - 37 Units/L EXTERNAL LAB SCRIBED eGFR in NonAfrican Norwegian 30(A) 89 - >89 EXTERNAL LAB Blood 08/06/2024 us Historical Provider LAB BLOOD ORDERABLES Edit ed Result - Final EXTERNAL LAB * Pulmonary Function Test - (07/28/2024 10:01 AM CDT) FVC PRE 2.21 L [facility] FVC %PRE PRED 84 % [facility] FEV1 PRE 1.84 L [facility] FEV1 %PRE PRED 89 % [facility] FEV1/FVC PRE 83.3 % [facility] Anatomical Region Laterality Modality PFT 07/28/2024 9:48 AM CDT Narrative 07/30/2024 3:28 AM CDT PFT performed at:->[id number] Procedure:->Spirometry Procedure:->Pulse Ox Pulmonary Function Test Interpretation SPIROMETRY: Spirometry is normal. The flow volume loop is normal. PULSE OXIMETRY: Oxygen saturation as measured by pulse oximetry is normal. Impression: There is no ventilatory defect. Compared with most recent study, [...] and %HbO2 is age dependent. However, the [facility] Function [facility] defines hypoxemia as a PaO2 <56 mm Hg or a %HbO2 <89%. Starting on March of 2024 the [facility] Function Laboratory utilizes race neutral GLI Global normative equations. Bo Xie MD PFT ORDERABLES Final Result * XR Chest Pa Lateral 2 Views (07/28/2024 9:19 AM CDT) Anatomical Region Laterality Modality Body, Chest N/A Computed Radiogr aphy 07/28/2024 9:37 AM CDT Impressions 07/28/2024 9:56 AM CDT Comparison 04/28/2024 radiograph. Postsurgical changes of bilateral lung transplantation with transverse sternotomy wires. No consolidation, pleural effusion, or pneumothorax. Normal heart size and mediastinal contours. Dictated by: Naresh Francis MD PHD The radiology attending physician has personally reviewed this study, and had reviewed and/or edited this written report and agrees with it. Electronically signed by: Torie Ferris M.D. Narrative 07/28/2024 9:56 AM CDT EXAMINATION: 2 view chest radiograph Procedure Note Torie Ferris MD - 07/28/2024 EXAMINATION: 2 view chest radiograph IMPRESSION: Comparison 04/28/2024 radiograph. Postsurgical changes of bilateral lung transplantation with transverse sternotomy wires. No consolidation, pleural effusion, or pneumothorax. Normal heart size and mediastinal contours. Dictated by: Naresh Francis MD PHD The radiology attending physician has personally reviewed this study, and had reviewed and/or edited this written report and agrees with it. Electronically signed by: Torie Ferris M.D. Bo Xie MD IMG XR PROCEDURES Final Result * (ABNORMAL) eGFR (07/28/2024 9:18 AM CDT) Pathologist [facility] eGFR 33(L) >=60 mL/min/1. 73 m2 Comment: Interpretive Data [...] interpretive data was last reviewed 2021. Blood 07/28/2024 9:18 AM CDT 07/28/2024 9:56 AM CDT Bo Xie MD LAB BLOOD ORDERABLES Final Resul t [facility] Department [place] [address] * Differential, auto (07/28/2024 9:18 AM CDT) Pathologist [facility] Neutrophil abs 2.32 1.50 - 6.50 K/cumm Imm gran abs 0.03 0.00 - 0.10 K/cumm [facility] Lymphocyte abs 1.33 0.80 - 3.30 K/cumm [facility] Monocyte abs 0.53 0.20 - 0.80 K/cumm [facility] Eosinophil abs 0.07 0.00 - 0.50 K/cumm [facility] Basophil abs 0.02 0.00 - 0.10 K/cumm [facility] Neutrophil pct 54.0 % [facility] Comment: Interpretive Data Percent cell count reference ranges are not reported, since discordance with absolute values may lead to misinterpretation of CBC data. Current Interpretive Data was last revised on 2017. Imm gran pct 0.7 % [facility] Comment: Interpretive Data Percent cell count reference ranges are not reported, since discordance with absolute values may lead to misinterpretation of CBC data. Current Interpretive Data was last revised on 2017. Lymphocyte pct 30.9 % [facility] Comment: Interpretive Data Percent cell count reference ranges are not reported, since discordance with absolute values may lead to misinterpretation of CBC data. Current Interpretive Data was last revised on 2017. Monocyte pct 12.3 % [facility] Comment: Interpretive Data Percent cell count reference ranges are not reported, since discordance with absolute values may lead to misinterpretation of CBC data. Current Interpretive Data was last revised on 2017. Eosinophil pct 1.6 % [facility] Comment: Interpretive Data Percent cell count reference ranges are not reported, since discordance with absolute values may lead to misinterpretation of CBC data. Current Interpretive Data was last revised on 2017. Basophil pct 0.5 % [facility] Comment: Interpretive Data Percent cell count reference ranges are not reported, since discordance with absolute values may lead to misinterpretation of CBC data. Current Interpretive Data was last revised on 2017. Blood 07/28/2024 9:18 AM CDT 07/28/2024 9:56 AM CDT us Bo Xie MD LAB BLOOD ORDERABLES Final Resul t [facility] Department of Laboratories [place], [place] [id number] * Tacrolimus level trough (07/28/2024 9:18 AM CDT) [facility] Tacrolimus trough 7.0 ng/mL Comment: Interpretive Data Testing performed by liquid chromatography-tandem mass spectrometry. Therapeutic concentrations vary depending on type of transplanted organ and time elapsed since transplant. Typical trough concentrations range from 5-15 ng/mL. This test was developed and its performance characteristics determined by the [facility] consistent with CLIA requirements. This test has not been cleared or approved by the [place] Food and Drug administration. Current interpretive data last reviewed 2019. Blood 07/28/2024 9:18 AM CDT 07/28/2024 9:56 AM CDT Bo Xie MD LAB BLOOD ORDERABLES Final Resul t Performing Organization Address City/[facility] Co de Phone Number [facility] Department [place] [address] * (ABNORMAL) CBC with auto differential (07/28/2024 9:18 AM CDT) WBC 4.30 3.80 - 9.90 K/cumm Hgb 12.0 11.9 - 15.5 g/dL [facility] Hct 35.2(L) 35.6 - 45.5 % [facility] Plt 139(L) 150 - 400 K/cumm [facility] MPV 12.1 9.1 - 12.3 fL [facility] RBC 3.72(L) 3.90 - 5.20 M/cumm [facility] MCV 94.6 81.3 - 96.4 fL [facility] MCH 32.3 27.1 - 33.3 pg [facility] MCHC 34.1 32.3 - 35.7 g/dL [facility] RDW CV 13.2 11.1 - 14.9 % [facility] RDW SD 45.1 35.7 - 48.1 fL [facility] NRBC abs 0.00 0.00 - 0.01 K/cumm [facility] Blood 07/28/2024 9:18 AM CDT 07/28/2024 9:56 AM CDT us Bo Xie MD LAB BLOOD ORDERABLES Final Resul t Performing Organization Address City/[facility]/ZIP Co de Phone Number [facility] [place] [address] * Vitamin D 25 hydroxy (07/28/2024 9:18 AM CDT) Vitamin D 25-OH 57 30 - 80 ng/mL Blood 07/28/2024 9:18 AM CDT 07/28/2024 9:56 AM CDT us Bo Xie MD LAB BLOOD ORDERABLES Final Resul t Performing Organization Address [facility] [place] [address] * TSH (07/28/2024 9:18 AM CDT) Thyroid Stimulating Hormone 1.70 0.30 - 4.20 mcIUnit/mL Blood 07/28/2024 9:18 AM CDT 07/28/2024 9:56 AM CDT us Bo Xie MD LAB BLOOD ORDERABLES Final Resul t Performing Organization Address [facility] Co de Phone Number [facility] [place] [address] * T4, free (07/28/2024 9:18 AM CDT) Free T4 1.47 0.90 - 1.70 ng/dL Blood 07/28/2024 9:18 AM CDT 07/28/2024 9:56 AM CDT us Bo Xie MD LAB BLOOD ORDERABLES Final Resul t Performing Organization Address [facility] Co de Phone Number [facility] [place] [address] * (ABNORMAL) Hemoglobin A1c (07/28/2024 9:18 AM CDT) Hgb A1C 5.7(H) 4.0 - 5.6 % Estimated Average Glucose 117 mg/dL [facility] Comment: The ADA recommends reporting an estimated Average Glucose (eAG) with all Hemoglobin A1c results using the equation derived from a study of 507 normal and diabetic adults. Minority populations were underrepresented and children were not included. (Diabetes Care 2020; 43(S1): S66-S76). The eAG is not equivalent to a fasting glucose. Blood 07/28/2024 9:18 AM CDT 07/28/2024 9:56 AM CDT Bo Xie MD LAB BLOOD ORDERABLES Final Resul t [facility] Department [place] [address] * Lipid panel (07/28/2024 9:18 AM CDT) Cholesterol 140 30 - 199 mg/dL Comment: Interpretive Data Ages < or = 19 years Acceptable: <170 mg/dL Borderline high: 170-199 mg/dL High: >or= 200 mg/dL Ages > or = 20 years Desirable: <200 mg/dL Borderline high: 200-239 mg/dL High: >or= 240 mg/dL Literature References: 1. Expert Panel on Integrated Guidelines for Cardiovascular Health and Risk Reduction in Children and Adolescents. Pediatrics 2011;128:S213 2. NCEP Expert Panel. Circulation 2004;110:227 Current Interpretive Data was last revised on 2017. Triglycerides 105 <=149 mg/dL [facility] Comment: Interpretive Data Ages < or = 9 years Acceptable: <75 mg/dL Borderline high: 75-99 mg/dL High: >or= 100 mg/dL Ages 10 to 20 years Acceptable: <90 mg/dL Borderline high: 90-129 mg/dL High: >or= 130 mg/dL Ages > or = 20 years Desirable: <150 mg/dL Borderline high: 150-199 mg/dL High: 200-499 mg/dL Very high: >or= 499 mg/dL Literature References: 1. Expert Panel on Integrated Guidelines for Cardiovascular Health and Risk Reduction in Children and Adolescents. Pediatrics 2011;128:S213 2. NCEP Expert Panel. Circulation 2004;110:227 Current Interpretive Data was last revised on 2017. HDL 62 >=40 mg/dL [facility] Comment: Interpretive Data Ages < or = 19 years Acceptable: >45 mg/dL Borderline low: 40-45 mg/dL Low: <40 mg/dL Ages > or = 20 years Desirable: >or= 60 mg/dL Low: <40 mg/dL Literature References: 1. Expert Panel on Integrated Guidelines for Cardiovascular Health and Risk Reduction in Children and Adolescents. Pediatrics 2011;128:S213 2. NCEP Expert Panel. Circulation 2004;110:227 Current Interpretive Data was last revised on 2017. LDL, calculated 59 <=129 mg/dL [facility] Comment: Interpretive Data Ages < or = 19 years Acceptable: <110 mg/dL Borderline high: 110-129 mg/dL High: >or= 130 mg/dL Ages > or = 20 years Optimal: <100 mg/dL Near optimal: 100-129 mg/dL Borderline high: 130-159 mg/dL High: >160 mg/dL Calculated using the Romaine LDL-C estimating equation. This equation was implemented on 2023. Prior to this date LDL-C was estimated using the Friedewald equation. Literature References: 1. Expert Panel on Integrated Guidelines for Cardiovascular Health and Risk Reduction in Children and Adolescents. Pediatrics 2011;128:S213 2. NCEP Expert Panel. Circulation 2004;110:227 3. Romaine Javed et al. SAMANTHA Cardiol. 2019July 14;5(5):540-548. doi: 10.1001/[email or web address].2020.0013 Current Interpretive Data was last revised on 2023. Non-HDL Cholesterol 78 mg/dL [facility] Comment: Interpretive Data Ages < or = 19 years Acceptable: <120 mg/dL Borderline high: 120-144 mg/dL High: >145 mg/dL Ages > or = 20 years When triglycerides are >200 mg/dL, Non-HDL cholesterol is a secondary target of therapy with treatment goals that are 30 mg/dL greater than the LDL cholesterol target. Literature References: 1. Expert Panel on Integrated Guidelines for Cardiovascular Health and Risk Reduction in Children and Adolescents. Pediatrics 2011;128:S213 2. NCEP Expert Panel. Circulation 2004;110:227 Current Interpretive Data was last revised on 2017. Chol/HDL ratio 2 [facility] Blood 07/28/2024 9:18 AM CDT 07/28/2024 9:56 AM CDT Narrative [facility] - 07/28/2024 10:40 AM CDT Please instruct the patient this is a fasting panel. Bo Xie MD LAB BLOOD ORDERABLES Final Resul t [facility] Department [place] [address] * (ABNORMAL) Comprehensive metabolic panel (07/28/2024 9:18 AM CDT) Sodium 142 135 - 145 mmol/L Potassium, pl 4.1 3.3 - 4.9 mmol/L [facility] Chloride 109 97 - 110 mmol/L [facility] CO2 22 22 - 32 mmol/L [facility] Anion gap 11 2 - 15 mmol/L [facility] BUN 33(H) 6 - 25 mg/dL [facility] Creatinine 1.68(H) 0.60 - 1.10 mg/dL [facility] Glucose 84 70 - 199 mg/dL [facility] Comment: Interpretive Data Fasting glucose >/= [...] interpretive data was last revised 2022. Calcium 8.8 8.5 - 10.3 mg/dL [facility] Bilirubin, total 0.3 0.1 - 1.2 mg/dL [facility] Protein, pl 6.8 6.5 - 8.5 g/dL [facility] Albumin 4.2 3.5 - 5.0 g/dL [facility] Alk phos 57 40 - 130 Units/L [facility] ALT 15 7 - 45 Units/L [facility] AST 30 10 - 45 Units/L [facility] Blood 07/28/2024 9:18 AM CDT 07/28/2024 9:56 AM CDT Bo iXe MD LAB BLOOD ORDERABLES Final Resul t [facility] Department [place] [address] * Hepatitis C (HCV) RNA PCR, quantitative (07/22/2021) SCRIBED HCV RNA <15 15 - 100,000,000 IUnit/mL EXTERNAL LAB HCV RNA log IU/mL <1.18 1.18 - 8.00 EXTERNAL LAB Blood specimen (specimen) 07/22/2021 Historical Provider LAB MICROBIOLOGY - GENERA L ORDERABLES Edited Result - Final EXTERNAL LAB from Last 3 Months or Most Recently Relevant to Health Maintenance Insurance MEDICARE MEDICARE [address] MEDICARE [facility] [place] [place] [id number] Advance Directives For more information, please contact: [phone] * Full Code (Latest Code Status on File) Date Activated Date Inactivated Comments 08/27/2020 7:37 AM 08/27/2020 1:55 PM * Full Code Date Activated Date Inactivated Comments 07/20/2020 11:11 AM 08/01/2020 7:54 PM * Full Code Date Activated Date Inactivated Comments 07/18/2020 6:33 PM 07/20/2020 11:11 AM * Full Code Date Activated Date Inactivated Comments 05/23/2020 3:35 PM 05/23/2020 9:41 PM Care Teams Crepe Sole Wire Brusher Relationship Specialty Start Date End Date Dami Juárez MD PCP - General 04/27/20 Luz Elena Barnes, RN [address] [facility] [address] [place] [address] Secretary Book Keeper 08/02/20 Hollie Cespedes MD [address] [place] [address] Spindle Sander Transplant 06/03/23
--- OUTSIDE RECORDS SUMMARY | 2024-08-15 01:21 | XMS_ITS | Clinical Summary ---
Author Organization [facility] Address [address] [facility] [facility] [address] [place] [address] Phone Care Team Providers Care New Car Salesperson Name Role Phone Unavailable Primary Care Provider [...]
--- OUTSIDE RECORDS SUMMARY | 2024-08-15 01:22 | XMS_ITS | Referral Summary ---
Author Organization [facility] Address [address] [place] [address] Care Team Providers Care Head Cd Reactor Operator Name Role Phone Dami Juárez MD Primary Care Provider Luz Elena Barnes RN Unavailable [phone] Hollie Cespedes MD Unavailable [phone] Encounters Date Type Department Care Team Description 08/11/2024 Telephone [facility] Transplant Lung [address] [facility] [address] 02-44-0 [place] [address] Lakisha Bashir 08/10/2024 Telephone [facility] Transplant Lung [address] [facility] [address] [id number] [place] [address] Courtney Myrick 08/09/2024 Telephone [facility] Transplant Lung [address] [facility] [address] [id number] [place] [address] Luz Elena Barnes, fire lookout Results 07/29/2024 Telephone [facility] Transplant Lung [address] [facility] [address] Mail[address] [phone] [place], [place] [id number] Luz Elena Barnes, fire lookout Results 07/28/2024 9:16 AM CDT - 07/28/2024 11:59 PM CDT Hospital Encounter [facility] [address] [place] [address] Encounter for aftercare following lung transplant (HCC) Discharge Disposition: Discharge to home or self care 07/28/2024 10:30 AM CDT Lab [facility] ([facility]) [address] [place] [address] Encounter for aftercare following lung transplant (HCC); Long-term use of immunosuppressant medication; Encounter for therapeutic drug level monitoring; Aftercare following organ transplant 07/28/2024 10:00 AM CDT Office Visit [facility] Pulmonary [address] [facility] 8[address] [place] [address] [place] [address] Abdullahi Baird MD PhD Encounter for aftercare [...] Hospital Encounter [facility] Pulmonary [address] [facility] [address] [place] [address] Encounter for aftercare following lung transplant (HCC) Discharge Disposition: Discharge to home or self care 07/20/2024 Orders Only [facility] Transplant Lung [address] [facility] [address] [phone] [place] [address] Luz Elena Barnes RN 07/05/2024 Orders Only [facility] Transplant Lung [address] [facility] [address] [phone] [place] [address] Luz Elena Barnes, RN Encounter for aftercare following lung transplant (HCC) (Primary Dx); Long-term use of immunosuppressant medication; Encounter for therapeutic drug level monitoring; Aftercare following organ transplant 06/15/2024 Orders Only [facility] Transplant Lung [address] [facility] [address] Mail[address] [phone] [place] [address] Luz Elena Barnes, KORINA from Last 3 Months Allergies No known active allergies Medications levothyroxine (SYNTHROID) 75 mcg tablet Take 75 mcg by mouth sewer pipe sorter before breakfast Active aspirin 81 mg enteric [...] 2 (two) times a day 60 capsule 06/16/19 25 Active sulfamethoxaz ole-trimethop rim (BACTRIM DS) 800-160 mg per tablet Take 1 tablet (160 mg of trimethoprim total) by mouth 3 (three) times a week 13 tablet 06/16/19 25 Active predniSONE (DELTASONE) 5 mg [...] MOUTH TWICE A DAY 60 tablet 11 07/15/19 24 025 Discontinued(R eorder) predniSONE (DELTASONE) [...] (04/23/2020): Added automatically from request for surgery [id number] Assessment & Plan (08/01/2020 7:56 AM CDT): [...] Encounter for aftercare following lung transplan t ([facility]) Immunizations Immunization Administration Dates Next Due Influenza, [...] on file 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 Gender Identity Not on file Sexual Orientation [...] 07/28/2024 10:06 AM CDT Plan of Treatment Not on file Medical Devices Implanted Type Area Ton Container Filler Device Identifier Shelf Expiration Date Model / Serial / Lot Daig [employer] [id number] Angio-Seal Evolution 8fr .038in Guidewire Bypass Tube Suture - [id number] - [id number] Implanted:Qty: 1 on 05/23/2020 by Reji Lao MD at [facility] [employer] [facility] 01/13/2021 [id number] / [id number] / [id number] [employer]ig [employer] [id number] Angio-Seal Evolution 6fr .035in Guidewire Bypass Tube Suture - [id number] - [id number] Implanted:Qty: 1 on 05/23/2020 by Reji Lao MD at [facility] [employer] [facility] 02/12/2021 [id number] / [id number] / [id number] Procedures Procedure Name Priority Date/Time Associated Diagnosis [...] SCRIBED Urine-Clarity CLEAR EXTERNAL LAB SCRIBED Specific [place], Urine 1.025 1.000 - 1.025 EXTERNAL LAB [...] Urine FEW /HPF EXTERNAL LAB Urine 08/09/2024 us Historical Provider LAB MICROBIOLOGY - GENERA L ORDERABLES Edited Result - Final EXTERNAL LAB * Tacrolimus level trough (08/06/2024) SCRIBED Tacrolimus, trough 5.6 5.0 - 20.0 EXTERNAL LAB Blood 08/06/2024 us Historical Provider LAB BLOOD ORDERABLES Seble griffith Result EXTERNAL LAB * (ABNORMAL) CBC with [...] Units/L EXTERNAL LAB SCRIBED eGFR in NonAfrican Tajik 30(A) 89 - >89 EXTERNAL LAB Blood 08/06/2024 us Historical Provider LAB BLOOD ORDERABLES Edit ed Result - Final EXTERNAL LAB * Pulmonary Function Test - (07/28/2024 10:01 AM CDT) FVC PRE 2.21 L [facility] FVC %PRE PRED 84 % [facility] FEV1 PRE 1.84 L [facility] FEV1 %PRE PRED 89 % [facility] FEV1/FVC PRE 83.3 % [facility] Anatomical Region Laterality Modality PFT 07/28/2024 9:48 AM CDT Narrative 07/30/2024 3:28 AM CDT PFT performed at:->[facility] Adult PFT Lab- [facility] Procedure:->Spirometry Procedure:->Pulse Ox [...] it. Electronically signed by: Torie Ferris M.D. us Bo Xie MD IMG XR PROCEDURES Final Result * (ABNORMAL) eGFR (07/28/2024 9:18 AM CDT) eGFR 33(L) >=60 mL/min/1. 73 m2 Comment: [...] Inclusion of Race in Diagnosing Kidney Disease, ARNOLSN 2020). The CKD-EPI equation should not be used for patients with unstable renal function and has not been validated in children and those over 70. Current interpretive data was last reviewed 2021. Blood 07/28/2024 9:18 AM CDT 07/28/2024 9:56 AM CDT us Bo Xie MD LAB BLOOD ORDERABLES Final Resul t [facility] One [facility] Department of Laboratories [place], [place] [id number] * Differential, auto (07/28/2024 9:18 AM CDT) Neutrophil abs 2.32 1.50 - 6.50 K/cumm Imm gran abs 0.03 0.00 - 0.10 K/cumm [facility] Lymphocyte abs 1.33 0.80 - 3.30 K/cumm [facility] Monocyte abs 0.53 0.20 - 0.80 K/cumm [facility] Eosinophil abs 0.07 0.00 - 0.50 K/cumm [facility] Basophil abs 0.02 0.00 - 0.10 K/cumm [facility] Neutrophil pct 54.0 % [facility] Comment: Interpretive Data Percent cell count reference ranges are not reported, since discordance with absolute values may lead to misinterpretation of CBC data. Current Interpretive Data was last revised on 2017. Imm gran pct 0.7 % [facility] Comment: Interpretive Data Percent cell count reference ranges are not reported, since discordance with absolute values may lead to misinterpretation of CBC data. Current Interpretive Data was last revised on 2017. Lymphocyte pct 30.9 % [facility] Comment: Interpretive Data Percent cell count reference ranges are not reported, since discordance with absolute values may lead to misinterpretation of CBC data. Current Interpretive Data was last revised on 2017. Monocyte pct 12.3 % [facility] Comment: Interpretive Data Percent cell count reference ranges are not reported, since discordance with absolute values may lead to misinterpretation of CBC data. Current Interpretive Data was last revised on 2017. Eosinophil pct 1.6 % [facility] Comment: Interpretive Data Percent cell count reference ranges are not reported, since discordance with absolute values may lead to misinterpretation of CBC data. Current Interpretive Data was last revised on 2017. Basophil pct 0.5 % [facility] Comment: Interpretive Data Percent cell count reference ranges are not reported, since discordance with absolute values may lead to misinterpretation of CBC data. Current Interpretive Data was last revised on 2017. Blood 07/28/2024 9:18 AM CDT 07/28/2024 9:56 AM CDT Bo Xie MD LAB BLOOD ORDERABLES Final Resul t Performing Organization Address [facility] Co de Phone Number [facility] [place] [address] * Tacrolimus level trough (07/28/2024 9:18 AM CDT) [facility] Tacrolimus trough 7.0 ng/mL Comment: Interpretive Data Testing performed by liquid chromatography-tandem mass spectrometry. Therapeutic concentrations vary depending on type of transplanted organ and time elapsed since transplant. Typical trough concentrations range from 5-15 ng/mL. This test was developed and its performance characteristics determined by the [facility] Laboratory consistent with CLIA requirements. This test has not been cleared or approved by the US Food and Drug administration. Current interpretive data last reviewed 2019. Blood 07/28/2024 9:18 AM CDT 07/28/2024 9:56 AM CDT Bo Xie MD LAB BLOOD ORDERABLES Final Resul t Performing Organization Address [facility] Co de Phone Number PHILIPPE [facility] [address] * (ABNORMAL) CBC with auto differential (07/28/2024 9:18 AM CDT) [facility] WBC 4.30 3.80 - 9.90 K/cumm Hgb 12.0 11.9 - 15.5 g/dL [facility] Hct 35.2(L) 35.6 - 45.5 % [facility] Plt 139(L) 150 - 400 K/cumm [facility] MPV 12.1 9.1 - 12.3 fL [facility] RBC 3.72(L) 3.90 - 5.20 M/cumm [facility] MCV 94.6 81.3 - 96.4 fL [facility] MCH 32.3 27.1 - 33.3 pg [facility] MCHC 34.1 32.3 - 35.7 g/dL [facility] RDW CV 13.2 11.1 - 14.9 % [facility] RDW SD 45.1 35.7 - 48.1 fL [facility] NRBC abs 0.00 0.00 - 0.01 K/cumm [facility] Blood 07/28/2024 9:18 AM CDT 07/28/2024 9:56 AM CDT us Bo Xie MD LAB BLOOD ORDERABLES Final Resul t Performing Organization Address [facility] Co de Phone Number [facility] [place] [address] * Vitamin D 25 hydroxy (07/28/2024 9:18 AM CDT) Vitamin D 25-OH 57 30 - 80 ng/mL Blood 07/28/2024 9:18 AM CDT 07/28/2024 9:56 AM CDT Bo Xie MD LAB BLOOD ORDERABLES Final Resul t Performing Organization Address [facility] de Phone Number [facility] [place] [place] [address] * TSH (07/28/2024 9:18 AM CDT) Thyroid Stimulating Hormone 1.70 0.30 - 4.20 mcIUnit/mL Blood 07/28/2024 9:18 AM CDT 07/28/2024 9:56 AM CDT Bo Xie MD LAB BLOOD ORDERABLES Final Resul t Performing Organization Address [facility] Co de Phone Number [facility] [place] [address] * T4, free (07/28/2024 9:18 AM CDT) Free T4 1.47 0.90 - 1.70 ng/dL Blood 07/28/2024 9:18 AM CDT 07/28/2024 9:56 AM CDT Result [facility] us Bo Xie MD LAB BLOOD ORDERABLES Final Resul t Performing Organization Address [facility] [place] [address] * (ABNORMAL) Hemoglobin A1c (07/28/2024 9:18 AM CDT) Hgb A1C 5.7(H) 4.0 - 5.6 % Estimated Average Glucose 117 mg/dL [facility] Comment: The ADA recommends reporting an estimated Average Glucose (eAG) with all Hemoglobin A1c results using the equation derived from a study of 507 normal and diabetic adults. Minority populations were underrepresented and children were not included. (Diabetes Care 2020; 43(S1): S66-S76). The eAG is not equivalent to a fasting glucose. Blood 07/28/2024 9:18 AM CDT 07/28/2024 9:56 AM CDT Result Page Xie MD LAB BLOOD ORDERABLES Final Resul t Performing Organization Address [facility] [place] [address] * Lipid panel (07/28/2024 9:18 AM CDT) [...] revised on 2017. Triglycerides 105 <=149 mg/dL [facility] Comment: Interpretive Data Ages < or = [...] revised on 2017. HDL 62 >=40 mg/dL [facility] Comment: Interpretive Data Ages < or = [...] on 2017. LDL, calculated 59 <=129 mg/dL [facility] Comment: Interpretive Data Ages < or = [...] 3. Romaine Javed et al. SAMANTHA Cardiol. 2020 July 14;5(5):540-548. doi: 10.1001/jamacardio.2020.0013 Current Interpretive Data was last revised on 2023. Non-HDL Cholesterol 78 mg/dL [facility] Comment: Interpretive Data Ages < or = [...] last revised on 2017. Chol/HDL ratio 2 [facility] Blood 07/28/2024 9:18 AM CDT 07/28/2024 9:56 AM CDT Narrative [facility] - 07/28/2024 10:40 AM CDT Please instruct the patient this is a fasting panel. us Bo Xie MD LAB BLOOD ORDERABLES Final Resul t [facility] [place] [address] * (ABNORMAL) Comprehensive metabolic panel (07/28/2024 9:18 AM CDT) Sodium 142 135 - 145 mmol/L Potassium, pl 4.1 3.3 - 4.9 mmol/L [facility] Chloride 109 97 - 110 mmol/L [facility] CO2 22 22 - 32 mmol/L [facility] Anion gap 11 2 - 15 mmol/L [facility] BUN 33(H) 6 - 25 mg/dL [facility] Creatinine 1.68(H) 0.60 - 1.10 mg/dL [facility] Glucose 84 70 - 199 mg/dL [facility] Comment: Interpretive Data Fasting glucose >/= [...] 2022. Calcium 8.8 8.5 - 10.3 mg/dL [facility] Bilirubin, total 0.3 0.1 - 1.2 mg/dL [facility] Protein, pl 6.8 6.5 - 8.5 g/dL [facility] Albumin 4.2 3.5 - 5.0 g/dL [facility] Alk phos 57 40 - 130 Units/L [facility] ALT 15 7 - 45 Units/L [facility] AST 30 10 - 45 Units/L [facility] Blood 07/28/2024 9:18 AM CDT 07/28/2024 9:56 AM CDT Bo Xie MD LAB BLOOD ORDERABLES Final Resul t [facility] [place] [address] * Hepatitis C (HCV) RNA PCR, quantitative (07/22/2021) SCRIBED HCV RNA <15 15 - 100,000,000 IUnit/mL EXTERNAL LAB HCV RNA log IU/mL <1.18 1.18 - 8.00 EXTERNAL LAB Blood specimen (specimen) 07/22/2021 Historical Provider LAB MICROBIOLOGY - GENERA L ORDERABLES Edited Result - Final EXTERNAL LAB from Last 3 Months or Most Recently Relevant to Health Maintenance Insurance MEDICARE MEDICARE [address] [facility] MEDICARE [place] MEDICARE [place] [facility] Advance Directives For more information, please contact: [phone] * Full Code (Latest Code Status on File) Date Activated Date Inactivated Comments 08/27/2020 7:37 AM 08/27/2020 1:55 PM * Full Code Date Activated Date Inactivated Comments 07/20/2020 11:11 AM 08/01/2020 7:54 PM * Full Code Date Activated Date Inactivated Comments 07/18/2020 6:33 PM 07/20/2020 11:11 AM * Full Code Date Activated Date Inactivated Comments 05/23/2020 3:35 PM 05/23/2020 9:41 PM Care Teams Head Cd Reactor Operator Relationship Specialty Start Date End Date Dami Juáerz MD PCP - General 04/27/20 Luz Elena Barnes, RN [address] [facility] [address] [address] [place] [address] Monogram Technician 08/02/20 Hollie Cespedes MD [address] [place] [address] Organizational Research Consultant Transplant 06/03/23
[2024-08-15] MEDS: LACTATED RINGERS 1,000 ML 30 ML IV CONT (10:25)
--- NOTE | 2024-08-15 12:06 | WPDHPUPDATE1 ---
History and Physical Update Update Date/Time: 08/15/24 12:06 History and Physical has been reviewed, including an updated exam of the patient. There are NO changes in the patient's condition. Risks, benefits, and alternatives have been discussed and questions answered. Patient agrees to proceed with procedure.
--- NOTE | 2024-08-15 12:14 | P.PNAN_ITS ---
Anes - Initial Pre Proc Eval Procedure: Operation Date: 08/15/24 12:00 Proposed Procedures p Bilateral Myringotomy,Insertion Of Tubes - Gordo Hill MD s Bilateral Eustachian Balloon Tube Dilation - MD akhil Magallanes Nasal Endoscopy - Gordo Hill MD Date/Time: 08/15/24 12:14 Surgeon: Gordo Hill MD Pre Op Diagnosis: Otitis Media Bilateral Hearing Loss bilateral Patient Data Age: 68 Gender: F Height: 1.6 m Weight: 92.4 kg Last Vital Signs Temp 36.2 C L 08/15/24 10:00 Pulse 76 08/15/24 10:00 Resp 16 08/15/24 10:00 BP 143/80 H 08/15/24 10:00 Pulse Ox 99 08/15/24 10:00 O2 Del Method Room Air 08/15/24 10:00 Allergies Allergy/AdvReac Type Severity Reaction Status Date / Time No Known Allergies Allergy Verified 08/15/24 10:05 Home Medications ?Medication ?Instructions ?Recorded ?Confirmed ?Type acetaminophen 325 mg capsule 325 mg PO Q6H PRN pain 07/01/23 07/29/24 History (Tylenol) acyclovir 400 mg tablet 200 mg PO BID 07/01/23 08/15/24 History aspirin 81 mg tablet,delayed 81 mg PO DAILY 07/01/23 08/15/24 History release (Adult Aspirin Regimen) cholecalciferol (vitamin D3) 50 50 mcg PO DAILY 07/01/23 08/15/24 History mcg (2,000 unit) capsule denosumab 60 mg/mL subcutaneous 60 mg subcut [id number] 07/01/23 08/15/24 History syringe fluticasone propionate 50 1 inh inhalation Q12H 07/01/23 07/29/24 History mcg/actuation blister powder for inhalation levothyroxine 75 mcg capsule 75 mcg PO DAILY 07/01/23 08/15/24 History loratadine 10 mg tablet 10 mg PO DAILY 07/01/23 08/15/24 History mycophenolate mofetil 500 mg tablet 500 mg PO Q12H 07/01/23 08/15/24 History pantoprazole 40 mg tablet,delayed 40 mg PO QAM 07/01/23 08/15/24 History release rosuvastatin 10 mg tablet 10 mg PO DAILY 07/01/23 08/15/24 History sulfamethoxazole 800 1 tablet PO Q12H 07/01/23 08/15/24 History mg-trimethoprim 160 mg tablet (Bactrim DS) tacrolimus 1 mg capsule, 1 mg PO Q12H 07/01/23 08/15/24 History immediate-release prednisone 5 mg tablet 5 mg PO DAILY 07/19/24 08/15/24 History calcium carbonate 500 mg PO DAILY 07/29/24 08/15/24 History Patient hx anesthesia problems: none Family hx anesthesia problems: none Results Review: All pre-operative results and documents have been reviewed as part of the pre- operative evaluation. 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 Surgical History Surgical History (Updated 08/15/24 @ 12:15 by Eliu Guzman MD) Lung transplanted bilateral 2020 Family History Family History Father Lung cancer Mother Cerebrovascular accident Social History Social History Smoking status: Never smoker Alcohol intake: never Substance use: never Substance use type: does not use Living arrangements: with family Additional living arrangements comments: Spiritual care concerns: No Anes - Eval Final PreProcedure Day of Procedure 08/15/24 12:14 Patient weight: obese Heart: regular rate and rhythm Lungs: clear to auscultation Airway: Mallampati scale class II Neurological: alert and oriented Last oral intake: >/= 8 hours ASA classification: III Emergent: no Anesthetic plan: proceed Anesthesia type and monitoring: general Results Review: All pre-operative results and documents have been reviewed as part of the pre- operative evaluation. Informed Consent: The patient's anesthetic plan and its attendant risks and benefits were discussed with the patient/family/POA. Questions were solicited and answers provided to the satisfaction of the patient/family/POA.
[2024-08-15] MEDS: OXYMETAZOLINE HCL 0.05% NAS 15 ML BTL (*BKC) 1 SPRAY NASAL (13:33)
[2024-08-15] MEDS: CIPROFLOXACIN HCL 0.3% OP SOLN 2.5 ML BTL 4 DROP EACH EAR (13:35)
[2024-08-15] MEDS: fentaNYL CITRATE INJ (*CRX) 100 MCG/2 ML VIAL 25 MCG IV PUSH ×2 (14:02→14:06)
--- NOTE | 2024-08-15 14:03 | P.OP_ITS ---
Procedure Note - Detailed Date of Procedure 08/15/24 Pre-op Diagnosis Otitis Media Bilateral Hearing Loss bilateral Post-op Diagnosis Same Procedure Performed Right-sided myringotomy with collar-button tube insertion, left-sided ear exam under anesthesia, nasal endoscopy, bilateral eustachian tube balloon dilation Surgeon Gordo Hill MD Anesthesia General Indications See above Findings Left-sided tube was then placed is dirty the base was cleaned was slightly pushed it was pushed back into more normal position right-sided full of serous effusion tube resolved that the eustachian tubes are interesting so bilaterally when there are dilated thick thick mucus mm overall patient tolerated the procedure very well Description of Procedure Patient identified consent verified the preoperative holding area. Patient brought to the operating. Time-out performed. General anesthesia induced endotracheal tube secured airway. Patient prepped draped position procedure confirmed 2nd time-out performed. Right-sided ear viewed myringotomy made copious amounts of fluid collar button tube placed fluid was all suctioned out drops were placed left-sided tube was cleaned off middle ear look good tube was in place and patent drops were placed as well. Attention was then turned to the nose and nasal endoscopy was performed using a 0 degree endoscope after Afrin- soaked pledgets were placed bilaterally and allowed to sit for 5 minutes septum was severely deviated I could reach both fransisca balloon was placed and again this procedures performed bilaterally the eustachian tubes the fransisca were each balloon for 2 minutes on each sides then the balloon was removed no bleeding no trauma to any of the surrounding structures other than the intended trauma. Thick mucus emanated from the bilateral fransisca as well. Bilateral nasal passages and suctioned out. Care the patient given Anesthesiology I performed all dictated portions procedure no complications. Patient tolerated the procedure very well. Patient taken to PACU. Estimated Blood Loss 1 Drains No Packing No Pathology None sent Complications No immediate complications Condition Stable Disposition PACU [facility] Billing Surgery - Charge Forward: Surgery Billing
--- NOTE | 2024-08-15 15:15 | SUR.PHASEII ---
1500 PT STATES HER SPOUSE HAS A DR APPT AT 1530 THAT HE NEEDS TO MAKE. STRESSED & REQUESTING TO BE DISCHARGED. DISCHARGE INSTRUCTIONS GIVEN & QUESTIONS ANSWERED. INFORMED PT THAT I WAS CONCERNED WITH HER BP. PT STATES IT IS NEVER THAT HIGH USUALLY AND WILL CONTINUE TO MONITOR IT AT HOME. SHE WILL F/U WITH PCP IF NEEDED.
== END 2024-08-15 15:12 | disposition home or self-care (01) ==
PROVIDERS: PCP Family Medicine; Visit Provider Otolaryngology
PROC: (CPT 69436; principal; 2024-08-15 12:00)
PROC: (CPT 69436; 2024-08-15 12:00)
PROC: (CPT 69436; 2024-08-15 12:00)
DX: H66.93 Otitis media, unspecified, bilateral (principal); H69.93 Unspecified Eustachian tube disorder, bilateral; E66.9 Obesity, unspecified; Z68.36 Body mass index [BMI] 36.0-36.9, adult; Z79.82 Long term (current) use of aspirin; Z79.52 Long term (current) use of systemic steroids; Z79.51 Long term (current) use of inhaled steroids; Z98.890 Other specified postprocedural states; Z94.2 Lung transplant status; Z80.1 Family history of malignant neoplasm of trachea, bronchus and lung; Z82.49 Family history of ischemic heart disease and other diseases of the circulatory system
CPT/HCPCS: 69436; 69706; A9270; C1726; J0330; J2003; J2704; J3010; J7120